=== PATIENT | female | born 1945 | race Caucasian/White ===

== ENCOUNTER → 2018-01-22 13:12 | Outpatient (CLI) | payer MEDICARE, OTHER, SELFPAY ==
[2018-01-22 13:29] LABS: Add Manual Diff / Slide Review NO; Basophils Percent Auto 0.8 % (0-2); Eosinophils Percent Auto 1.3 % (2-4); Hematocrit 42.5 % (36-46); Hemoglobin 14.4 g/dL (12.0-16.0); Lymphocytes Percent Auto 24.3 % (25-40); Mean Corpuscular HGB Conc 33.8 % (30-36); Mean Corpuscular Hemoglobin 30.3 PG (26-34); Mean Corpuscular Volume 89.9 fL (80-100); Monocytes Percent Auto 10.4 % (3-14); Neutrophils Absolute Auto 3600 /uL (3000-5900); Neutrophils Percent Auto 63.2 % (50-75); Platelet Count 383 X10^3/uL (150-400); Red Blood Cell Count 4.73 X10^6/uL (4.0-5.2); Red Cell Distribution Width 13.5 % (11.6-14.8); White Blood Cell Count 5.8 X10^3/uL (4.5-11.0)
[2018-01-22 13:38] LABS: Alanine Aminotransferase 26 IU/L (9-52); Albumin 4.5 g/dL (3.5-5.0); Albumin Globulin Ratio 1.5 (1.0-2.8); Alkaline Phosphatase 95 U/L (38-126); Aspartate Aminotransferase 28 IU/L (14-36); BUN Creatinine Ratio 24.3 (6-22); Bilirubin Total 0.6 mg/dL (0.2-1.3); Blood Urea Nitrogen 17 mg/dL (7-17); Calcium 9.5 mg/dL (8.4-10.2); Carbon Dioxide 26 mmol/L (22-32); Chloride 100 mmol/L (98-107); Estimated Glomerular Filt Rate > 60.0 mL/min (>60); Glucose 105 mg/dL (80-110); HEMOLYSIS < 15 (0-50); Potassium 4.3 mmol/L (3.4-5.1); Sodium 138 mmol/L (137-145); Total Protein 7.5 g/dL (6.3-8.2)
[2018-01-24 15:35] LABS: Cancer Antigen 27.29 34 U/mL (< 38)
== END ==
PROVIDERS: Family Provider Family Medicine; PCP Family Medicine; Visit Provider Nurse Practitioner Gerontology
DX: C50.919 Malignant neoplasm of unspecified site of unspecified female breast (principal); Z98.890 Other specified postprocedural states
CPT/HCPCS: 36415; 80053; 85025; 86300

== ENCOUNTER → 2018-05-03 08:00 | Outpatient (CLI) | payer MEDICARE, OTHER, SELFPAY ==
[2018-05-03 09:21] LABS: Hemoglobin A1C% w Est Avg Glu 5.2 % (4.0-6.0)
[2018-05-03 09:23] LABS: Cholesterol 310 mg/dL (140-199); HDL Cholesterol 107 mg/dL (40-60); LDL Cholesterol Calculated 191 mg/dL (<100); Triglycerides 61 mg/dL (35-150)
[2018-05-03 09:53] LABS: Free T3, Triiodothyronine Free 2.83 pg/mL (2.77-5.27); Free T4, Direct Thyroxine 0.85 ng/dL (0.78-2.19)
[2018-05-03 10:07] LABS: Thyroid Stimulating Hormone 1.97 uIU/mL (0.47-4.68)
[2018-05-04 17:55] LABS: Vitamin D 25 Hydroxy (D3) 36.7 ng/mL (30.0-100.0)
== END ==
PROVIDERS: PCP Family Medicine; Visit Provider Family Medicine
DX: K59.8 Other specified functional intestinal disorders (principal)
CPT/HCPCS: 36415; 80061; 82306; 83036; 84439; 84443; 84481

== ENCOUNTER → 2018-05-10 13:33 | Outpatient (CLI) | payer MEDICARE, OTHER, SELFPAY | PROVIDERS: PCP Family Medicine; Visit Provider Family Medicine | DX: M85.88 Other specified disorders of bone density and structure, other site (principal); Z78.0 Asymptomatic menopausal state; Z85.3 Personal history of malignant neoplasm of breast; Z82.62 Family history of osteoporosis | CPT/HCPCS: 77080 ==

== ENCOUNTER → 2018-07-11 10:21 | Outpatient (CLI) | payer MEDICARE, OTHER, SELFPAY | PROVIDERS: PCP Family Medicine; Visit Provider Psychiatry & Neurology Psychiatry | DX: Z79.899 Other long term (current) drug therapy (principal) | CPT/HCPCS: 36415; 80156 ==

== ENCOUNTER → 2018-07-13 13:19 | Outpatient (CLI) | payer MEDICARE, OTHER, SELFPAY ==
[2018-07-13 13:57] LABS: Add Manual Diff / Slide Review NO; Basophils Percent Auto 0.8 % (0-2); Hematocrit 41.5 % (36-46); Hemoglobin 13.9 g/dL (12.0-16.0); Lymphocytes Percent Auto 28.3 % (25-40); Mean Corpuscular HGB Conc 33.6 % (30-36); Mean Corpuscular Hemoglobin 30.1 PG (26-34); Mean Corpuscular Volume 89.7 fL (80-100); Monocytes Percent Auto 10.8 % (3-14); Neutrophils Absolute Auto 2800 /uL (3000-5900); Neutrophils Percent Auto 59.1 % (50-75); Platelet Count 365 X10^3/uL (150-400); Red Blood Cell Count 4.62 X10^6/uL (4.0-5.2); Red Cell Distribution Width 12.6 % (11.6-14.8); White Blood Cell Count 4.7 X10^3/uL (4.5-11.0)
[2018-07-13 14:04] LABS: Alanine Aminotransferase 23 IU/L (9-52); Albumin 4.5 g/dL (3.5-5.0); Albumin Globulin Ratio 1.6 (1.0-2.8); Alkaline Phosphatase 84 U/L (38-126); Aspartate Aminotransferase 25 IU/L (14-36); BUN Creatinine Ratio 22.5 (6-22); Bilirubin Total 0.5 mg/dL (0.2-1.3); Blood Urea Nitrogen 18 mg/dL (7-17); Calcium 9.6 mg/dL (8.4-10.2); Carbon Dioxide 28 mmol/L (22-32); Chloride 100 mmol/L (98-107); Estimated Glomerular Filt Rate > 60.0 mL/min (>60); Globulin 2.8 g/dL (1.7-4.1); Glucose 92 mg/dL (80-110); HEMOLYSIS < 15 (0-50); Potassium 4.3 mmol/L (3.4-5.1); Sodium 139 mmol/L (137-145); Total Protein 7.3 g/dL (6.3-8.2)
--- NOTE | 2018-07-13 14:22 | PC.NURSE ---
labs stable, provider visit 07/19
[2018-07-17 16:08] LABS: Cancer Antigen 27.29 34 U/mL (< 38)
== END ==
PROVIDERS: PCP Family Medicine; Visit Provider Nurse Practitioner Gerontology
DX: Z85.3 Personal history of malignant neoplasm of breast (principal); M85.88 Other specified disorders of bone density and structure, other site
CPT/HCPCS: 36415; 80053; 85025; 86300

== ENCOUNTER → 2018-10-05 13:51 | Outpatient (CLI) | payer MEDICARE, OTHER, SELFPAY ==
--- NOTE | 2018-10-05 | DI.MG.S_ITS ---
BILATERAL DIGITAL SCREENING MAMMOGRAM 3D/2D WITH CAD POST LUMPECTOMY: 10/05/2018 CLINICAL: Routine screening. Personal history of left breast cancer. Family history of breast cancer. Comparison is made to exams dated: 09/14/2017 mammogram, 08/19/2016 mammogram, and 08/17/2015 mammogram - [facility]. The tissue of both breasts is heterogeneously dense. This may lower the sensitivity of mammography. Current study was also evaluated with a Computer Aided Detection (CAD) system. There is possible architectural distortion in the right breast at 11 o'clock posterior depth. No other significant masses, calcifications, or other findings are seen in either breast. IMPRESSION: INCOMPLETE: NEEDS ADDITIONAL IMAGING EVALUATION The possible architectural distortion in the right breast is indeterminate. Additional views with possible ultrasound are recommended. This exam was interpreted at Station ID: [id number]. NOTE: For mammograms, a report in lay terms will be sent to the patient. Approximately 15% of breast malignancies will not be visualized mammographically. In the management of a palpable breast mass, a negative mammogram must not discourage biopsy of a clinically suspicious lesion. Electronically Signed By: Agnes Watkins M.D. lk/:10/05/2018 15:59:31 copy to: Alexandr Epstein copy to: Leobardo Avendano letter sent: Additional Imaging Needed ACR BI-RADS Category 0: Incomplete 3340F
== END ==
PROVIDERS: PCP Family Medicine; Visit Provider Obstetrics & Gynecology
DX: Z12.31 Encounter for screening mammogram for malignant neoplasm of breast (principal); Z85.3 Personal history of malignant neoplasm of breast; Z80.3 Family history of malignant neoplasm of breast
CPT/HCPCS: 77063; 77067

== ENCOUNTER → 2018-10-22 09:51 | Outpatient (CLI) | payer MEDICARE, OTHER, SELFPAY ==
--- NOTE | 2018-10-22 09:55 | DI.US.S_ITS ---
LIMITED ULTRASOUND OF RIGHT BREAST: 10/22/2018 CLINICAL: Patient returns today to evaluate possible architectural distortion in the right breast. Comparison is made to exams dated: 10/22/2018 mammogram, 10/05/2018 mammogram, 09/14/2017 mammogram, 08/19/2016 mammogram, and 08/19/2016 mammogram - [facility]. Real-time and Doppler ultrasound of the right breast 10-2 o'clock region were performed. Bell scale images of the real-time examination were reviewed. No underlying breast mass or abnormality is identified. There is no ultrasound correlate for the previously noted possible architechtural distortion in the upper right breast at middle to posterior depth near 11-1 o'clock position on comparison screening and diagnostic mammograms. IMPRESSION: INCOMPLETE: NEEDS ADDITIONAL IMAGING EVALUATION No ultrasound correlate for the previously noted possible architechtural distortion in the upper right breast at middle to posterior depth near 11-1 o'clock position on comparison screening and diagnostic mammograms. This area remains concerning and a breast MRI with contrast is recommended for further evaluation. This exam was interpreted at Station ID: [id number]. Electronically Signed By: Nithin Pittman M.D. ecl/:10/22/2018 14:30:19 Entry: - 10/22/2018 14:30:19 copy to: Alexandr Epstein copy to: Leobardo Avendano letter sent: Need MRI Ultrasound BI-RADS: 0 Indeterminate
--- NOTE | 2018-10-22 09:55 | DI.MG.S_ITS ---
UNILATERAL RIGHT DIGITAL DIAGNOSTIC MAMMOGRAM 3D/2D WITH ADDITIONAL VIEWS: 10/22/2018 CLINICAL: Additional evaluation requested from prior study. Family history of breast cancer. Personal history of breast cancer. Comparison is made to exams dated: 10/05/2018 mammogram, 09/14/2017 mammogram, and 08/19/2016 mammogram - [facility]. The tissue of right breast is heterogeneously dense. This may lower the sensitivity of mammography. Previously identified possible architectural distortion in the right breast described as being at 11 o'clock posterior depth on comparison screening mammograms of 10/05/2018 persists with additional views. The area of posterior distortion localizes closer to middle depth on additional views, and is in the upper breast near 11-1 o'clock positions. IMPRESSION: INCOMPLETE: NEEDS ADDITIONAL IMAGING EVALUATION Previously identified possible architectural distortion in the upper right breast persists with additional views. A targeted ultrasound is recommended for further evaluation, and will be performed immediately following this exam. This exam was interpreted at Station ID: [id number]. NOTE: For mammograms, a report in lay terms will be sent to the patient. Approximately 15% of breast malignancies will not be visualized mammographically. In the management of a palpable breast mass, a negative mammogram must not discourage biopsy of a clinically suspicious lesion. Electronically Signed By: Nithin Pittman M.D. ecl/:10/22/2018 10:59:52 copy to: Alexandr Epstein copy to: Leobardo Avendano letter sent: Additional Imaging Needed ACR BI-RADS Category 0: Incomplete 3340F
== END ==
PROVIDERS: PCP Family Medicine; Visit Provider Obstetrics & Gynecology
DX: R92.8 Other abnormal and inconclusive findings on diagnostic imaging of breast (principal); Z85.3 Personal history of malignant neoplasm of breast; Z80.3 Family history of malignant neoplasm of breast
CPT/HCPCS: 76642; 77065; G0279

== ENCOUNTER → 2018-10-31 07:37 | Outpatient (CLI) | payer MEDICARE, OTHER, SELFPAY ==
--- NOTE | 2018-10-31 07:41 | DI.MRI.S_ITS ---
BREAST MRI OF BOTH BREASTS- POST LUMPECTOMY WITH CAD: 10/31/2018 CLINICAL: Abnormal right breast mammogram. Comparison is made to exams dated: 10/22/2018 ultrasound, 10/22/2018 mammogram, and 10/05/2018 mammogram - [facility]. Interpretation of this MRI was correlated with available mammograms and ultrasounds. Informed consent was obtained from the patient. Gadolinium contrast was injected. Axial T1, T2, sagittal T1, and pre and post contrast T1 images were obtained with a dedicated breast coil. Post processing was performed including computer aided calculations of any tumor volumes and dimensions. Bilateral background breast enhancement is mild. Right breast: No discrete mass or suspicious enhancement to suggest malignancy in the right breast. Specifically, no abnormality identified to correlate with the area of possible architectural distortion on prior mammogram. Left breast: No discrete mass or suspicious enhancement to suggest malignancy in the left breast. Miscellaneous: No evidence of intramammary or axillary lymphadenopathy by size criteria. IMPRESSION: PROBABLY BENIGN 1. No MRI evidence of malignancy in the right or left breast. Specifically, no abnormality identified in the right breast to correlate with the possible architectural distortion on prior mammogram. Recommend followup mammogram in 6 months to demonstrate stability. A follow-up mammogram in 6 months is recommended to demonstrate stability. This exam was interpreted at Station ID: [id number]. Electronically Signed By: Samson Reyes M.D. ddmando/:11/01/2018 08:15:25 Entry: - 11/01/2018 08:15:25 copy to: Alexandr Epstein copy to: Leobardo Avendano ACR BI-RADS Category 3: Probably benign 3343F
== END ==
PROVIDERS: PCP Family Medicine; Visit Provider Obstetrics & Gynecology
DX: R92.8 Other abnormal and inconclusive findings on diagnostic imaging of breast (principal); Z85.3 Personal history of malignant neoplasm of breast
CPT/HCPCS: 77049; A9579

== ENCOUNTER → 2019-01-31 10:04 | Outpatient (CLI) | payer MEDICARE, OTHER, SELFPAY ==
--- NOTE | 2019-01-31 10:06 | DI.US.S_ITS ---
LIMITED ULTRASOUND OF LEFT BREAST AND AXILLA: 01/31/2019 CLINICAL: Palpable left breast lump. Comparison is made to exams dated: 10/31/2018 breast MRI, 10/05/2018 mammogram, 09/14/2017 mammogram, 08/19/2016 mammogram, 08/19/2016 mammogram, and 02/17/2016 mammogram - [facility]. Color flow and real-time ultrasound of the left breast 12 o'clock, and axilla regions were performed on the areas of interest. There is 3 cm x 1 cm x 1.9 cm oval solid mass with an indistinct margin in the left breast at 12 o'clock anterior depth. This oval solid mass is hypoechoic and heterogeneously echogenic with posterior acoustic shadowing. This correlates as palpated. Color flow imaging demonstrates that there is vascularity present. No abnormalities were seen sonographically in the left axilla. IMPRESSION: SUSPICIOUS OF MALIGNANCY The 3 cm x 1 cm x 1.9 cm oval solid mass in the left breast is at a moderate suspicion for malignancy. An ultrasound guided biopsy is recommended. The findings were discussed with the patient at the conclusion of the study by Dr. Clifton. This exam was interpreted at Station ID: [id number]. Electronically Signed By: Samson glaser/:01/31/2019 18:01:22 copy to: Alexandr Epstein copy to: Leobardo Avendano letter sent: Biopsy Required Ultrasound BI-RADS: 4c Suspicious abnormality - moderate concern but not classic for malignancy
== END ==
PROVIDERS: Family Provider Family Medicine; PCP Family Medicine
DX: R92.8 Other abnormal and inconclusive findings on diagnostic imaging of breast (principal); N63.20 Unspecified lump in the left breast, unspecified quadrant
CPT/HCPCS: 76642

== ENCOUNTER → 2019-02-21 13:03 | Outpatient (CLI) | payer MEDICARE, OTHER, SELFPAY ==
--- NOTE | 2019-02-21 | DI.US.S_ITS ---
ULTRASOUND GUIDED BIOPSY LEFT BREAST USING VACUUM DEVICE WITH MARKING DEVICE INSERTED AND POST DIGITAL MAMMOGRAPHIC IMAGING AND RADIOGRAPHIC SPECIMEN IMAGIN02/21/2019 CLINICAL: Left breast mass. PATIENT CONSENT: Risks (minor bleeding, infection, vasovagal reaction and repeat procedure), benefits and alternatives were explained to the patient and written informed consent was obtained. Correlation is made to exams dated: 01/31/2019 ultrasound, 01/31/2019 ultrasound, 10/31/2018 breast MRI, 10/05/2018 mammogram, 09/14/2017 mammogram, and 08/19/2016 mammogram - [facility]. An ultrasound guided biopsy using real-time ultrasound was performed for the palpable 2.7 cm wider than tall microlobulated irregular shaped solid mass located in the left breast at 12 o'clock anterior depth 2 cm from the nipple. This was described on the previous ultrasound report. The skin was prepped in the usual manner. Local anesthetic was administered to the access site. A skin renate was made in the breast. The abnormality was approached from the lateral aspect. A 13 gauge biopsy needle was placed adjacent to the abnormality under ultrasound guidance. Once the needle was documented to be in the correct location, four cores were obtained using a vacuum assisted device. More that usual post biospy bleeding was demonstrated and pressure was applied for approxamently 10 min. A clip was inserted into the biopsy cavity. A skin closure strip and a sterile dressing were applied to the access site. Post procedure digital mammographic imaging demonstrates the coil biopsy clip at the targeted area. The specimens were sent to the laboratory for pathological analysis. IMPRESSION: ULTRASOUND GUIDED BIOPSY BENIGN Ultrasound guided biopsy of the 2.7 cm wider than tall solid mass in the left breast at 12 o'clock anterior depth 2 cm from the nipple was successful. Complication with this procedure was a small hematoma treated with local pressure until hemostasis was achieved. The imaged cores include the mass. Final pathology results per pathologist Dr. Clayton Soto identified fat necrosis with benign calcifications, background dense fibrous breast tissue, negative for atypical hyperplasia, in situ, or invasive carcinoma. Results are concordant with imaging. A follow-up targeted ultrasound with diagnostic mammogram is recommended in 6 months; mammography of the right breast will also be due at that time for evalution of stability of right breast findings described on comparison diagnostic mammogram of 10/22/2018 and breast MRI of 10/31/18. These results will be communicated to the patient's referring provider. This exam was interpreted at Station ID: [id number]. Nish Pittman M.D. [facility],ecl/:03/01/2019 05:51:15 copy to: Alexandr Epstein copy to: Leobardo Avendano
--- NOTE | 2019-02-21 | PATH_ITS ---
[facility] Accession Number: [id number] . 01 Material submitted: . breast - LEFT BREAST MASS 12:00 2 CM FN . 02 Diagnosis: Left Breast Mass at 12 o'clock, 2 cm from Nipple, Needle Core Biopsy: Fat necrosis with benign calcifications. Background dense fibrous breast tissue. Negative for atypical hyperplasia, in situ or invasive carcinoma. MRV/02/26/2019 . 02 Comment: As part of routine quality rep, Dr. Rodríguez has reviewed this case and agrees with the above interpretation. . 02 Electronically signed: . Clayton Soto MD, PhD, Pathologist NPI- [id number] . 01 Gross description: . Received in formalin, labeled with the patient's name and ultrasound biopsy left breast mass 12 o'clock, are five arnold-brown soft tissue cores ranging from 0.9 to 1.9 cm in length and averaging 0.2 cm in diameter. The specimen is entirely submitted in two cassettes. The specimen is collected on 02/21/2019 at 1403 for an approximate fixation time of 67.5 hours. (FEMI:[id number]) /MRV . 02 Microscopic: . An DUSTIN immunostain highlights benign ductal epithelium. There is no evidence of an infiltrative epithelial process. A control stain shows appropriate reactivity. . * This test was developed and its performance characteristics determined by [facility]. It has not been cleared or approved by the U.S. Food and Drug Administration. The FDA has determined that such clearance or approval is not necessary. This test is used for clinical purposes. It should not be regarded as investigational or for research. . 02 Pathologist provided ICD-10: N63.20 . 02 CPT . 982592, [id number] Performed at: 01 [facility] [address] [place] [address], [place], [place] [id number] MD Samson Dawson MD Phone: [phone] Performed at: 02 [facility] [address] [place], [place] [id number] MD Dimple Rodríguez MD Phone: [phone]
--- NOTE | 2019-02-21 13:16 | DI.MG.S_ITS ---
UNILATERAL LEFT DIGITAL DIAGNOSTIC MAMMOGRAM: 02/21/2019 CLINICAL: Post left breast ultrasound biopsy clip placement imaging. Comparison is made to exams dated: 10/31/2018 breast MRI, 10/22/2018 mammogram, and 10/05/2018 mammogram - [facility]. The tissue of left breast is heterogeneously dense. This may lower the sensitivity of mammography. Newly placed marker clip in the appropriate position with adjacent large rodlike calcifications in the left breast anterior depth superior region seen on the mediolateral oblique view only 1.4 cm from the nipple. This marker clip placement is at the biopsy site. This correlates with ultrasound findings and the biopsy. IMPRESSION: POST PROCEDURE MAMMOGRAM FOR MARKER PLACEMENT There was a successful marker clip placement in the left breast anterior depth at 12:00. This exam was interpreted at Station ID: [id number]. NOTE: For mammograms, a report in lay terms will be sent to the patient. Approximately 15% of breast malignancies will not be visualized mammographically. In the management of a palpable breast mass, a negative mammogram must not discourage biopsy of a clinically suspicious lesion. Electronically Signed By: Nish Gonzales M.D. slc/:02/21/2019 15:04:39 copy to: Alexandr Epstein copy to: Leobardo MURILLO BI-RADS Category Post-procedure mammogram for marker placement
== END ==
PROVIDERS: Family Provider Family Medicine; PCP Family Medicine
DX: N64.1 Fat necrosis of breast (principal); L76.02 Intraoperative hemorrhage and hematoma of skin and subcutaneous tissue complicating other procedure
CPT/HCPCS: 19083; 77065; 88305; 88342

== ENCOUNTER → 2019-04-23 12:31 | Outpatient (CLI) | payer MEDICARE, OTHER, SELFPAY ==
--- NOTE | 2019-04-23 12:33 | DI.MG.S_ITS ---
UNILATERAL RIGHT DIGITAL DIAGNOSTIC MAMMOGRAM 3D/2D SHORT-TERM FOLLOW-UP: 04/23/2019 CLINICAL: Patient returns for a 6 month follow up of the right breast. Comparison is made to exams dated: 02/21/2019 mammogram, 10/31/2018 breast MRI, and 10/05/2018 mammogram - [facility]. The tissue of right breast is heterogeneously dense. This may lower the sensitivity of mammography. On the current study of the right breast, the upper outer right breast architectural distortion is no longer discretely apparent, and has certainly not progressed. There are no new masses or suspicious calcifications. No significant masses, calcifications, or other findings are seen in the breast. IMPRESSION: NEGATIVE No persistent abnormality on the current study. There had been no previous sonographic correlate, and no suspicious finding in this breast on recently performed breast MRI. This area is therefore benign. Return to screening for the right breast is recommended. Continued follow up for the left breast as previously detailed is recommended. Findings and recommendations were conveyed to the patient at time of exam. This exam was interpreted at Station ID: [id number]. NOTE: For mammograms, a report in lay terms will be sent to the patient. Approximately 15% of breast malignancies will not be visualized mammographically. In the management of a palpable breast mass, a negative mammogram must not discourage biopsy of a clinically suspicious lesion. Electronically Signed By: Hayley houser/:04/23/2019 13:55:41 copy to: Alexandr Epstein letter sent: Normal Exam ACR BI-RADS Category 1: Negative 3341F
== END ==
PROVIDERS: Family Provider Family Medicine; PCP Family Medicine
DX: R92.8 Other abnormal and inconclusive findings on diagnostic imaging of breast (principal); C50.919 Malignant neoplasm of unspecified site of unspecified female breast
CPT/HCPCS: 77065; G0279

== ENCOUNTER → 2019-10-24 13:57 | Outpatient (CLI) | payer MEDICARE, OTHER, SELFPAY ==
--- NOTE | 2019-10-24 | DI.US.S_ITS ---
LIMITED ULTRASOUND OF RIGHT BREAST: 10/24/2019 CLINICAL: Possible right breast mass. Comparison is made to exams dated: 04/23/2019 mammogram, 02/21/2019 mammogram, 01/31/2019 ultrasound, and 01/31/2019 ultrasound [facility]. Real-time ultrasound of the right breast 10-11 o'clock region was performed. Bell scale images of the real-time examination were reviewed. No significant abnormalities were seen sonographically in the right breast. Specifically, no finding to correspond to the patient's mammographic abnormality at 11:00 middle depth. IMPRESSION: PROBABLY BENIGN No sonographic correlate to the mammographic asymmetry. A follow-up right mammogram in 6 months is recommended to demonstrate stability. Findings and recommendations were conveyed to the patient at time of exam. This exam was interpreted at Station ID: [id number]. Electronically Signed By: Hayley houser/:10/25/2019 19:50:08 copy to: Alexandr Epstein letter sent: Followup Recommended Ultrasound BI-RADS: 3 Probably benign
--- NOTE | 2019-10-24 | DI.US.S_ITS ---
LIMITED ULTRASOUND OF LEFT BREAST: 10/24/2019 CLINICAL: Follow up on biopsy site. Comparison is made to exams dated: 04/23/2019 mammogram, 02/21/2019 mammogram, 02/21/2019 ultrasound biopsy, 01/31/2019 ultrasound, and 01/31/2019 ultrasound - [facility]. Real-time ultrasound of the left breast 12 o'clock, and retroareolar regions was performed. Bell scale images of the real-time examination were reviewed. There is a stable benign irregular post-surgical tissue changes including coarse related calcifications in the left breast central to the nipple in the retroareolar region. This correlates with mammography findings. IMPRESSION: BENIGN There is no sonographic evidence of malignancy. The irregular post-surgical scar in the left breast is stable and appears benign. Return to annual mammogram screening schedule is recommended. Findings and recommendations were conveyed to the patient at time of exam. This exam was interpreted at Station ID: [id number]. Electronically Signed By: Hayley houser/:10/25/2019 19:55:54 copy to: Alexandr Epstein letter sent: Normal Exam Ultrasound BI-RADS: 2 Benign
--- NOTE | 2019-10-24 13:58 | DI.MG.S_ITS ---
BILATERAL DIGITAL DIAGNOSTIC MAMMOGRAM 3D/2D SHORT-TERM FOLLOW-UP POST LUMPECTOMY: 10/24/2019 CLINICAL: Patient returns for a 6 month follow up of the left breast, due for bilateral imaging. Comparison is made to exams dated: 04/23/2019 mammogram, 02/21/2019 mammogram, 10/31/2018 breast MRI, 10/22/2018 mammogram, 09/14/2017 mammogram, and 10/05/2018 mammogram - [facility]. The tissue of both breasts is heterogeneously dense. This may lower the sensitivity of mammography. There is a focal asymmetry in the right breast at 11 o'clock middle depth. Finding is seen only on tomography. This is more prominent. There is possible architectural distortion associated with the focal asymmetry. There is a stable fat necrosis in the left breast central to the nipple anterior depth. There is a biopsy clip associated with the fat necrosis. No other significant masses or calcifications are seen in either breast. IMPRESSION: INCOMPLETE: NEEDS ADDITIONAL IMAGING EVALUATION The focal asymmetry in the right breast at 11 o'clock middle depth is indeterminate. An ultrasound is recommended. The fat necrosis in the left breast central to the nipple anterior depth appears stable. An ultrasound is recommended for confirmation. Bilateral ultrasound was performed following this exam. This exam was interpreted at Station ID: [id number]. NOTE: For mammograms, a report in lay terms will be sent to the patient. Approximately 15% of breast malignancies will not be visualized mammographically. In the management of a palpable breast mass, a negative mammogram must not discourage biopsy of a clinically suspicious lesion. Electronically Signed By: Hayley houser/:10/24/2019 15:27:03 copy to: Alexandr Epstein ACR BI-RADS Category 0: Incomplete 3340F
== END ==
PROVIDERS: Family Provider Family Medicine; PCP Family Medicine; Referring Provider Family Medicine
DX: R92.8 Other abnormal and inconclusive findings on diagnostic imaging of breast (principal); N64.89 Other specified disorders of breast; N64.1 Fat necrosis of breast; Z85.3 Personal history of malignant neoplasm of breast
CPT/HCPCS: 76642; 77066; G0279

== ENCOUNTER → 2020-01-13 11:11 | Outpatient (CLI) | payer MEDICARE, OTHER, SELFPAY ==
[2020-01-13 12:25] LABS: Add Manual Diff / Slide Review NO; Basophils Absolute Auto 0 /uL (0-100); Basophils Percent Auto 0.8 % (0-2); Eosinophils Absolute Auto 0 /uL (0-450); Eosinophils Percent Auto 0.8 % (2-4); Hematocrit 40.9 % (36-46); Hemoglobin 13.9 g/dL (12.0-16.0); Lymphocytes Absolute Auto 1200 /uL (1100-4500); Lymphocytes Percent Auto 22.3 % (25-40); Mean Corpuscular HGB Conc 33.9 % (30-36); Mean Corpuscular Hemoglobin 30.6 PG (26-34); Mean Corpuscular Volume 90.2 fL (80-100); Monocytes Absolute Auto 500 /uL (0-900); Monocytes Percent Auto 9.5 % (3-14); Neutrophils Absolute Auto 3400 /uL (1500-7000); Neutrophils Percent Auto 66.6 % (50-75); Platelet Count 352 X10^3/uL (150-400); Red Blood Cell Count 4.54 X10^6/uL (4.0-5.2); Red Cell Distribution Width 13.8 % (11.6-14.8); White Blood Cell Count 5.2 X10^3/uL (4.5-11.0)
[2020-01-13 12:35] LABS: Alanine Aminotransferase 18 IU/L (<35); Albumin 4.5 g/dL (3.5-5.0); Albumin Globulin Ratio 1.5 (1.0-2.8); Alkaline Phosphatase 100 U/L (38-126); Aspartate Aminotransferase 31 IU/L (14-36); BUN Creatinine Ratio 16.2 (6-22); Bilirubin Total 0.5 mg/dL (0.2-1.3); Blood Urea Nitrogen 12 mg/dL (7-17); Calcium 9.7 mg/dL (8.4-10.2); Carbon Dioxide 28 mmol/L (22-32); Chloride 103 mmol/L (98-107); Estimated Glomerular Filt Rate > 60.0 mL/min (>60); Globulin 3.1 g/dL (1.7-4.1); Glucose 101 mg/dL (80-110); HEMOLYSIS < 15 (0-50); Potassium 4.3 mmol/L (3.4-5.1); Sodium 139 mmol/L (137-145); Total Protein 7.6 g/dL (6.3-8.2)
[2020-01-14 04:36] LABS: Cancer Antigen 27.29 34.2 U/mL (0.0-38.6)
== END ==
PROVIDERS: Family Provider Family Medicine; PCP Family Medicine; Referring Provider Internal Medicine Hematology & Oncology; Visit Provider Internal Medicine Hematology & Oncology
DX: C50.919 Malignant neoplasm of unspecified site of unspecified female breast (principal)
CPT/HCPCS: 36415; 80053; 85025; 86300

== ENCOUNTER → 2020-05-06 13:28 | Outpatient (CLI) | payer MEDICARE, OTHER, SELFPAY ==
--- NOTE | 2020-05-06 | DI.MG.S_ITS ---
UNILATERAL RIGHT DIGITAL DIAGNOSTIC MAMMOGRAM 3D/2D SHORT-TERM FOLLOW-UP: 05/06/2020 CLINICAL: Short term follow up. Comparison is made to exams dated: 10/24/2019 mammogram, 04/23/2019 mammogram, 10/22/2018 mammogram, 10/05/2018 mammogram, and 09/14/2017 mammogram - [facility]. The tissue of right breast is heterogeneously dense. This may lower the sensitivity of mammography. The previously described focal asymmetry in the right breast at 11 o'clock middle depth is no longer seen. The associated architectural distortion appears less conspicuous and only visualized on the lateral view by tomosynthesis. There was no correlate seen on the prior ultrasound. No other significant masses or calcifications are seen in the breast. IMPRESSION: PROBABLY BENIGN Previously described right breast asymmetry is not apprerciated on today's study and possible architectural distortion is only seen tomographically on the lateral view. A follow-up right mammogram with possible ultrasound in 6 months is recommended to demonstrate stability. The patient will also be due for screening left mammogram at that time. Findings and recommendations were conveyed to the patient during today's visit. This exam was interpreted at Station ID: [id number]. NOTE: For mammograms, a report in lay terms will be sent to the patient. Approximately 15% of breast malignancies will not be visualized mammographically. In the management of a palpable breast mass, a negative mammogram must not discourage biopsy of a clinically suspicious lesion. Electronically Signed By: Miles De Oliveira M.D. aty/:05/06/2020 14:49:12 copy to: Alexandr Epstein letter sent: Followup Recommended ACR BI-RADS Category 3: Probably benign 3343F
== END ==
PROVIDERS: Family Provider Family Medicine; PCP Family Medicine; Referring Provider Internal Medicine Hematology & Oncology; Visit Provider Internal Medicine Hematology & Oncology
DX: R92.8 Other abnormal and inconclusive findings on diagnostic imaging of breast (principal); N64.89 Other specified disorders of breast; Z85.3 Personal history of malignant neoplasm of breast
CPT/HCPCS: 77065; G0279

== ENCOUNTER → 2020-05-11 09:47 | Outpatient (CLI) | payer MEDICARE, OTHER, SELFPAY | PROVIDERS: Family Provider Family Medicine; PCP Family Medicine; Referring Provider Family Medicine; Visit Provider Internal Medicine Hematology & Oncology | DX: M81.0 Age-related osteoporosis without current pathological fracture (principal); Z78.0 Asymptomatic menopausal state; C50.919 Malignant neoplasm of unspecified site of unspecified female breast; Z82.62 Family history of osteoporosis | CPT/HCPCS: 77080; 77081 ==

== ENCOUNTER → 2020-11-04 08:33 | Outpatient (CLI) | payer MEDICARE, OTHER, SELFPAY ==
--- NOTE | 2020-11-04 08:36 | DI.MG.S_ITS ---
BILATERAL DIGITAL DIAGNOSTIC MAMMOGRAM 3D/2D SHORT-TERM FOLLOW-UP POST LUMPECTOMY: 11/04/2020 CLINICAL: Short term follow up of the right breast, due for bilateral imaging. Comparison is made to exams dated: 05/06/2020 mammogram, 10/24/2019 mammogram, and 10/31/2018 breast MRI - [facility]. The tissue of both breasts is heterogeneously dense. This may lower the sensitivity of mammography. There is a focal asymmetry in the right breast at 11 o'clock middle depth. Finding is seen only on tomography. This is more prominent. There is architectural distortion associated with the focal asymmetry. There is a stable fat necrosis in the left breast central to the nipple anterior depth. There is a biopsy clip associated with the fat necrosis. No other significant masses or calcifications are seen in either breast. IMPRESSION: BENIGN Focal asymmetry in the right breast at 11 o'clock middle depth is unchanged. Stable fat necrosis in the left breast central to the nipple anterior depth A diagnostic ultrasound has been requested and and will be performed immediately following this exam. This exam was interpreted at Station ID: [id number]. NOTE: For mammograms, a report in lay terms will be sent to the patient. Approximately 15% of breast malignancies will not be visualized mammographically. In the management of a palpable breast mass, a negative mammogram must not discourage biopsy of a clinically suspicious lesion. Electronically Signed By: Familia Camilo M.D. jr/:11/04/2020 13:36:38 copy to: Alexandr MURILLO BI-RADS Category 2: Benign Finding(s) 3342F
--- NOTE | 2020-11-04 08:36 | DI.US.S_ITS ---
ULTRASOUND OF RIGHT BREAST: 11/04/2020 CLINICAL: Patient returns today to evaluate a focal asymmetry in the right breast. Comparison is made to exams dated: 05/06/2020 mammogram, 10/24/2019 ultrasound, 10/24/2019 ultrasound, 10/24/2019 mammogram, and 04/23/2019 mammogram - [facility]. Color flow and real-time ultrasound of the right breast were performed. Bell scale images of the real-time examination were reviewed. IMPRESSION: NEGATIVE There is no sonographic evidence of malignancy. A 1 year screening mammogram is recommended. This exam was interpreted at Station ID: [id number]. Electronically Signed By: Familia Camilo M.D., jr/michael:11/04/2020 13:37:06 copy to: Alexandr Epstein letter sent: Normal Exam Ultrasound BI-RADS: 1 Negative
== END ==
PROVIDERS: Family Provider Family Medicine; PCP Registered Nurse Diabetes Educator; Referring Provider Internal Medicine Hematology & Oncology; Visit Provider Internal Medicine Hematology & Oncology
DX: R92.8 Other abnormal and inconclusive findings on diagnostic imaging of breast (principal); C50.919 Malignant neoplasm of unspecified site of unspecified female breast; N64.89 Other specified disorders of breast
CPT/HCPCS: 76642; 77066; G0279

== ENCOUNTER → 2020-11-16 09:38 | Outpatient (CLI) | payer MEDICARE, OTHER, SELFPAY ==
[2020-11-16 11:02] LABS: COVID19 -Nasal RAPID Negative (Negative)
== END ==
PROVIDERS: Family Provider Family Medicine; PCP Registered Nurse Diabetes Educator; Visit Provider Physician Assistant
DX: Z01.812 Encounter for preprocedural laboratory examination (principal); Z20.822 Contact with and (suspected) exposure to COVID-19
CPT/HCPCS: 87635; C9803

== ENCOUNTER 2020-11-18 07:54 | Day surgery (SDC) | payer MEDICARE, OTHER, SELFPAY ==
[2020-11-18] VITALS (8 sets, daily range): BP systolic 87–145; BP diastolic 37–77; PULSE 57–90; RESP 12–16; TEMP 36.3–37.1; O2SAT 96–99; BMI 21.6
--- NOTE | 2020-11-18 | PATH_ITS ---
[facility] Accession Number: [id number] . 01 Material submitted: . PART A: small bowel - SMALL BOWEL PART B: gastrointestinal site - GASTRIC POLYP PART C: colon - RANDOM COLON BIOPSIES . 01 Clinical history: . [facility] A: R/O SPRUE . 02 Diagnosis: A. Small Bowel, Biopsy: Duodenal mucosa with no diagnostic abnormality. Negative for active inflammation, features of sprue, dysplasia, or malignancy. . B. Stomach, Polyp, Biopsy: Fundic gland polyp. No evidence of Helicobacter on H/E stain. Negative for intestinal metaplasia. Negative for dysplasia and malignancy. . C. Random Colon, Biopsies: Colonic mucosa with no diagnostic abnormality. Negative for active, chronic, and microscopic colitis. Negative for dysplasia and malignancy. [facility] 11/23/2020 1512 Local . 02 Electronically signed: . Dimple Rodríguez MD, Pathologist NPI- [id number] . 01 Gross description: . Part A: SMALL BOWEL: Received in formalin are 2 fragment(s) of arnold, soft tissue measuring 0.2 x 0.2 x 0.2 cm to 0.3 x 0.2 x 0.2 cm submitted entirely in 1 cassette(s) Part B: GASTRIC POLYP: Received in formalin are 2 fragment(s) of arnold, soft tissue measuring 0.1 x 0.1 x 0.1 cm to 0.3 x 0.3 x 0.2 cm submitted entirely in 1 cassette(s) Part C: RANDOM COLON BIOPSIES: Received in formalin are multiple fragment(s) of arnold, soft tissue measuring 0.1 x 0.1 x 0.1 cm to 0.4 x 0.3 x 0.2 cm submitted entirely in 1 cassette(s) /KARAN 11/19/2020 1835 [facility] . 02 Pathologist provided ICD-10: R13.14, R19.7 . 02 CPT . 976737, 072053, 395532 Performed at: 01 [facility] [address] [place] [address], [place], [place] [id number] MD Samson Dawson MD Phone: [phone] Performed at: 02 [facility] [place] [address] [place], [place] [id number] MD Dimple Rodríguez MD Phone: [phone]
--- NOTE | 2020-11-18 08:20 | PM.OP.ENDO ---
Operative Date/Time/Diagnoses Date of procedure: 11/18/20 Pre-op diagnosis: See indication and findings Procedure & Clinicians Study performed: EGD and colonoscopy Same procedure as scheduled: Yes Indications: Esophageal dysphagia and chronic diarrhea Surgeon: Neda Geiger Procedure Notes Procedure in detail: After informed consent was obtained the patient was placed in left lateral decubitus position. Video upper scope was placed into the oropharynx and with the patient's help swallowed into the esophagus. The esophagus stomach and duodenum were carefully examined. On withdrawal, retroflexed view the GE junction was performed. The scope was removed. The patient tolerated procedure well. The patient was then turned to the colonoscope substituted. This was passed from the rectum to the cecum where the IC valve was identified and intubated.. Preparation was good. On slow withdrawal mucosa was carefully examined. The scope was removed. The patient tolerated procedure well. Blood loss none Complications none Sedation Total sedation time 27 minutes Versed 5 mg fentanyl 100 micro g IV titration Findings EGD 1. Somewhat difficult to intubate with somewhat tight cricopharyngeus. No clear abnormality 2. Otherwise normal esophagus with completely normal gastroesophageal junction 3. Few scattered small polyps in midbody biopsies taken of 2 largest ones, basically removing them. 4. Normal duodenal bulb and sweep. Biopsies taken to rule out celiac Colonoscopy 1. Scattered left-sided diverticula 2. Otherwise completely normal colonic mucosa randomly biopsied to rule out microscopic colitis 3. Normal terminal ileum Further recommendations will follow the results of the biopsies.
--- NOTE | 2020-11-18 08:21 | PM.HP.1 ---
History of Present Illness History of Present Illness Date Patient Seen: 11/18/20 Chief complaint: SDC Narrative: Esophageal dysphagia and chronic diarrhea Patient History Medical History Allergies Chronic diarrhea Hearing loss (~2016) Insomnia Osteopenia PMB (postmenopausal bleeding) Surgical History Anesthesia History of third molar tooth extraction (~1964) Status post breast lumpectomy (~2014) Status post colonoscopy (~2012) Status post dilation and curettage (~2012) Family & Social History Family History Father History of heart disease Hyperlipidemia Hypertension Mother History of heart disease Hyperlipidemia Hypertension Brother History of heart disease Tobacco & Substance use: Smoking Status Never smoker Meds Home Medications and Allergies Home Medications Medication Instructions Recorded Confirmed Type cholecalciferol (vitamin D3) 1,000 unit PO DAILY 01/26/18 11/18/20 History [Vitamin D3] Allergies Allergy/AdvReac Type Severity Reaction Status Date / Time No Known Drug Allergies Allergy Verified 11/18/20 08:07 Exam Narrative Exam Narrative: Oropharynx free of lesions Chest clear to auscultation percussion Cardiac exam reveals no S3 or murmur Assessment & Plan Assessment & Plan narrative: Esophageal dysphagia and chronic diarrhea need for EGD and colonoscopy. Risks, benefits, alternatives have been explained.
[2020-11-18] MEDS: SODIUM CHLORIDE 0.9% 1,000 ML 100 ML IV (08:27)
[2020-11-18] MEDS: MIDAZOLAM 5 MG/5 ML VIAL IV (09:38)
[2020-11-18] MEDS: fentaNYL 250 MCG/5 ML INJ IV (09:38)
--- NOTE | 2020-11-18 10:54 | SUR.PHASEII ---
1030 Patient denies feeling lightheaded or dizzy. BP stable post-op, elevated on admit. Denies discomfort, tolerating ice chips well, decline PO fluids. Anxious to eat. Pleasant, no questions/concerns.
== END 2020-11-18 10:40 | disposition home or self-care (01) ==
PROVIDERS: Family Provider Family Medicine; PCP Registered Nurse Diabetes Educator; Referring Provider Internal Medicine Gastroenterology; Visit Provider Internal Medicine Gastroenterology
PROC: 0DJ08ZZ Inspection of Upper Intestinal Tract, Via Natural or Artificial Opening Endoscopic (ICD-10-PCS; CPT 43235; principal; 2020-11-18 09:00)
PROC: 0DJD8ZZ Inspection of Lower Intestinal Tract, Via Natural or Artificial Opening Endoscopic (ICD-10-PCS; CPT 45378; 2020-11-18 09:00)
DX: K52.9 Noninfective gastroenteritis and colitis, unspecified (principal); R13.14 Dysphagia, pharyngoesophageal phase; K57.30 Diverticulosis of large intestine without perforation or abscess without bleeding; K31.7 Polyp of stomach and duodenum
CPT/HCPCS: 45380; 43239; J2250; J3010

== ENCOUNTER → 2020-11-20 07:37 | Outpatient (CLI) | payer MEDICARE, OTHER, SELFPAY ==
[2020-11-20] MEDS: COVID-19 VACC, Ad26(JANSSEN)/PF 0.5 ML IM (07:43)
== END ==
PROVIDERS: Family Provider Family Medicine; PCP Registered Nurse Diabetes Educator; Visit Provider Internal Medicine
DX: Z23 Encounter for immunization (principal)
CPT/HCPCS: 0031A; 91303

== ENCOUNTER → 2021-11-05 10:46 | Outpatient (CLI) | payer MEDICARE, OTHER, SELFPAY ==
--- NOTE | 2021-11-05 | DI.MG.S_ITS ---
BILATERAL DIGITAL SCREENING MAMMOGRAM 3D/2D WITH CAD: 11/05/2021 CLINICAL: Routine screening. Personal history of left breast cancer. Family history of breast cancer. Comparison is made to exams dated: 11/04/2020 mammogram, 05/06/2020 mammogram, 10/24/2019 mammogram, and 10/05/2018 mammogram - [facility]. The tissue of both breasts is heterogeneously dense. This may lower the sensitivity of mammography. Current study was also evaluated with a Computer Aided Detection (CAD) system. There is a benign area of fat necrosis in the left breast. There also are benign post operative findings in the left breast. No significant masses, calcifications, or other findings are seen in either breast. There has been no significant interval change. IMPRESSION: BENIGN There is no mammographic evidence of malignancy. A 1 year screening mammogram is recommended. This exam was interpreted at Station ID: [id number]. NOTE: For mammograms, a report in lay terms will be sent to the patient. Approximately 15% of breast malignancies will not be visualized mammographically. In the management of a palpable breast mass, a negative mammogram must not discourage biopsy of a clinically suspicious lesion. Electronically Signed By: Hayley houser/michael:11/05/2021 11:34:45 copy to: Alexandr Epstein letter sent: Normal Exam ACR BI-RADS Category 2: Benign Finding(s) 3342F
== END ==
PROVIDERS: Family Provider Family Medicine; PCP Registered Nurse Diabetes Educator; Referring Provider Internal Medicine Hematology & Oncology; Visit Provider Internal Medicine Hematology & Oncology
DX: Z12.31 Encounter for screening mammogram for malignant neoplasm of breast (principal); Z85.3 Personal history of malignant neoplasm of breast; Z80.3 Family history of malignant neoplasm of breast
CPT/HCPCS: 77063; 77067

== ENCOUNTER → 2022-11-07 10:59 | Outpatient (CLI) | payer MEDICARE, OTHER, SELFPAY ==
--- NOTE | 2022-11-07 11:01 | DI.MG.S_ITS ---
BILATERAL DIGITAL SCREENING MAMMOGRAM 3D/2D WITH CAD: 11/07/2022 CLINICAL: Routine screening. Breast cancer. Comparison is made to exams dated: 11/05/2021 mammogram, 11/04/2020 mammogram, 05/06/2020 mammogram, and 10/24/2019 mammogram - [facility]. Both breasts are heterogeneously dense, which may obscure small masses (category c / 51-75% glandular tissue). Current study was also evaluated with a Computer Aided Detection (CAD) system. There is a benign area of fat necrosis in the left breast. There also are benign post operative findings in the left breast. No significant masses, calcifications, or other findings are seen in either breast. There has been no significant interval change. IMPRESSION: BENIGN There is no mammographic evidence of malignancy. A 1 year screening mammogram is recommended. This exam was interpreted at Station ID: [id number]. NOTE: For mammograms, a report in lay terms will be sent to the patient. Approximately 15% of breast malignancies will not be visualized mammographically. In the management of a palpable breast mass, a negative mammogram must not discourage biopsy of a clinically suspicious lesion. Electronically Signed By: Elia roman/michael:11/07/2022 11:51:55 letter sent: Normal Exam ACR BI-RADS Category 2: Benign Finding(s) 3342F
== END ==
PROVIDERS: Family Provider Family Medicine; PCP Registered Nurse Diabetes Educator; Referring Provider Registered Nurse Diabetes Educator; Visit Provider Registered Nurse Diabetes Educator
DX: Z12.31 Encounter for screening mammogram for malignant neoplasm of breast (principal); C50.919 Malignant neoplasm of unspecified site of unspecified female breast
CPT/HCPCS: 77063; 77067

== ENCOUNTER → 2023-01-26 09:02 | Outpatient (CLI) | payer MEDICARE, OTHER, SELFPAY ==
[2023-01-26 10:00] LABS: HEMOLYSIS < 15 (0-50); Iron 108 ug/dL (37-170)
[2023-01-26 10:08] LABS: Cholesterol 292 mg/dL (140-199); Triglycerides 65 mg/dL (35-150)
--- NOTE | 2023-01-26 10:08 | DI.DEXA.S_ITS ---
Bone Density Report Name: SHAWN JEFFERSON Age: 77 Sex: Female Ethnicity: White Date of : 1945 Indication: osteopenia; Referring Provider: KENJI LANG Study: Bone densitometry was performed. Exam Date: January 26, 2023 Accession number: [id number] Bone Density: Region BMD T-score Z-score Classification AP Spine(L1-L4) 0.780 -2.4 0.0 Osteopenia Femoral Neck (Left) 0.627 -2.0 0.1 Osteopenia Total Hip (Left) 0.755 -1.5 0.3 Osteopenia Femoral Neck (Right) 0.629 -2.0 0.1 Osteopenia Total Hip (Right) 0.729 -1.7 0.1 Osteopenia Total Hip Mean 0.742 -1.6 0.2 Osteopenia World Health Organization criteria for BMD impression classify patients as: Normal (T-score at or above -1.0), Osteopenia (T-score between -1.0 and -2.5), or Osteoporosis (T-score at or below -2.5). 10-year Fracture Risk(1): Major Osteoporotic Fracture 13% Hip Fracture 3.4% Reported Risk Factors: [place] (), Neck BMD=0.627, BMI=23.8 (1) FRAX(R) Version 3.08. Fracture probability calculated for an untreated patient. Fracture probability may be lower if the patient has received treatment. Previous Exams: -- Region Exam Age BMD T-score BMD Change BMD Change Date g/cm2 vs Baseline vs Previous -- AP Spine (L1-L4) 01/26/2023 77 0.780 -2.4 -0.011 (-1.4%)# -0.011 (-1.4%)# 05/11/2020 75 0.791 -2.3 Total Hip(Left) 01/26/2023 77 0.755 -1.5 -0.031 (-4.0%)# -0.031 (-4.0%)# 05/11/2020 75 0.786 -1.3 Total Hip(Right) 01/26/2023 77 0.729 -1.7 -0.041 (-5.3%)# -0.041 (-5.3%)# 05/11/2020 75 0.770 -1.4 -- *Denotes significance at 95% confidence level, LSC for AP Spine = 0.022 g/cm2, LSC for Total Hip = 0.027 g/cm2 # Denotes dissimilar scan types or analysis methods Impression: The patient has low bone mass, based on the Total Spine T-score. The patient has an estimated ten-year risk of hip fracture of 3.4% and an estimated ten-year risk of major fracture of 13%, based on the WHO FRAX algorithm. No significant bone loss was observed. Discussion: BONE DENSITY IS LOW AT ONE OR MORE SKELETAL SITES. THE PATIENT'S BMD AND CLINICAL RISK FACTORS CONTRIBUTE TO THIS PATIENT'S INCREASED RISK OF FRACTURE. This patient's lowest T-score is low at one or more skeletal sites. It meets the World Health Organization's (WHO) criteria for ?low bone mass? (T-score between -1.0 and -2.5). The patient's 10-year risk of hip fracture as calculated by FRAX exceeds the threshold where pharmacological therapy is recommended by the National Osteoporosis Foundation (NOF). However, all treatment decisions require clinical judgment and consideration of individual patient factors, including patient preferences, comorbidities, previous drug use, risk factors not captured in the FRAX model (e.g., frailty, falls, vitamin D deficiency, increased bone turnover, interval significant decline in bone density) and possible under or overestimation of fracture risk by FRAX. The patient should follow a healthful lifestyle (good nutrition with adequate calcium and vitamin D, and appropriate weight-bearing exercise). Follow-Up: Consider a repeat BMD and Vertebral Fracture Assessment (VFA) exam in 2 years or sooner if medically necessary, to reassess this patient's status. Reported by: ROSSY BOYD M.D. on 01/26/2023 10:18:00 AM.
[2023-01-26 10:11] LABS: Percent Iron Saturation 40 % (15-50); Total Iron Binding Capacity 269 ug/dL (265-497); Transferrin 218 mg/dL (206-381)
[2023-01-26 10:42] LABS: Ferritin 110 ng/mL (11-264); Testosterone 17.9 ng/dL (5.71-77.0)
[2023-01-26 10:48] LABS: HDL Cholesterol 161 mg/dL (40-60); LDL Cholesterol Calculated 118 mg/dL (<100)
== END ==
PROVIDERS: Family Provider Family Medicine; PCP Registered Nurse Diabetes Educator; Referring Provider Registered Nurse Diabetes Educator; Visit Provider Registered Nurse Diabetes Educator
DX: M85.88 Other specified disorders of bone density and structure, other site (principal); L65.0 Telogen effluvium; E78.5 Hyperlipidemia, unspecified; L65.8 Other specified nonscarring hair loss; Z78.0 Asymptomatic menopausal state
CPT/HCPCS: 36415; 77080; 80061; 82627; 82728; 83540; 83550; 84403; 84443

== ENCOUNTER → 2023-05-30 10:44 | Outpatient (CLI) | payer MEDICARE, OTHER, SELFPAY ==
[2023-05-30 12:32] LABS: Erythrocyte Sedimentation Rate 13 MM/HR (0-20)
[2023-05-30 16:57] LABS: Ferritin 102 ng/mL (11-264)
== END ==
PROVIDERS: Family Provider Family Medicine; PCP Registered Nurse Diabetes Educator; Referring Provider Physician Assistant Medical; Visit Provider Physician Assistant Medical
DX: L65.9 Nonscarring hair loss, unspecified (principal); L64.8 Other androgenic alopecia
CPT/HCPCS: 36415; 82728; 85651

== ENCOUNTER → 2023-10-19 10:36 | Outpatient (CLI) | payer MEDICARE, OTHER, SELFPAY ==
--- NOTE | 2023-10-19 10:39 | DI.MG.S_ITS ---
BILATERAL DIGITAL SCREENING MAMMOGRAM 3D/2D WITH CAD: 10/19/2023 CLINICAL: Routine screening. Personal history of left breast cancer. Family History of breast cancer. Comparison is made to exams dated: 11/07/2022 mammogram, 11/05/2021 mammogram, and 11/04/2020 mammogram - [facility]. Both breasts are heterogeneously dense, which may obscure small masses (category c / 51-75% glandular tissue). Current study was also evaluated with a Computer Aided Detection (CAD) system. The left breast has post-operative findings. There is a possible developing new oval focal asymmetry in the right breast at 11 o'clock middle depth. There is architectural distortion associated with the focal asymmetry. No other significant masses, calcifications, or other findings are seen in either breast. IMPRESSION: INCOMPLETE: NEEDS ADDITIONAL IMAGING EVALUATION The possible developing new oval focal asymmetry with architectural distortion in the right breast is indeterminate. Additional views with possible ultrasound are recommended. This exam was interpreted at Station ID: [id number]. NOTE: For mammograms, a report in lay terms will be sent to the patient. Approximately 15% of breast malignancies will not be visualized mammographically. In the management of a palpable breast mass, a negative mammogram must not discourage biopsy of a clinically suspicious lesion. Electronically Signed By: Miles De Oliveira M.D. aty/:10/19/2023 12:30:00 letter sent: Additional Imaging Needed ACR BI-RADS Category 0: Incomplete 3340F
== END ==
LOC: MAMMO 10:38
PROVIDERS: Family Provider Family Medicine; PCP Registered Nurse Diabetes Educator; Referring Provider Registered Nurse Diabetes Educator; Visit Provider Registered Nurse Diabetes Educator
DX: Z12.31 Encounter for screening mammogram for malignant neoplasm of breast (principal); Z85.3 Personal history of malignant neoplasm of breast; Z80.3 Family history of malignant neoplasm of breast; R92.333 Mammographic heterogeneous density, bilateral breasts
CPT/HCPCS: 77063; 77067

== ENCOUNTER → 2023-10-20 10:06 | Outpatient (CLI) | payer MEDICARE, OTHER, SELFPAY ==
[2023-10-20 11:31] LABS: Hematocrit 39.3 % (36-46); Hemoglobin 13.2 g/dL (12.0-16.0); Mean Corpuscular HGB Conc 33.5 % (30-36); Mean Corpuscular Hemoglobin 30.4 PG (26-34); Mean Corpuscular Volume 90.9 fL (80-100); Platelet Count 409 X10^3/uL (150-400); Red Blood Cell Count 4.33 X10^6/uL (4.0-5.2); Red Cell Distribution Width 13.2 % (11.6-14.8); White Blood Cell Count 4.8 X10^3/uL (4.5-11.0)
[2023-10-20 11:59] LABS: Alanine Aminotransferase 22 IU/L (<35); Albumin 4.2 g/dL (3.5-5.0); Albumin Globulin Ratio 1.4 (1.0-2.8); Alkaline Phosphatase 84 U/L (38-126); Aspartate Aminotransferase 32 IU/L (14-36); BUN Creatinine Ratio 27.2 (6-22); Bilirubin Total 0.8 mg/dL (0.2-1.3); Blood Urea Nitrogen 22 mg/dL (7-17); Calcium 9.3 mg/dL (8.4-10.2); Carbon Dioxide 27 mmol/L (22-32); Chloride 105 mmol/L (98-107); Cholesterol 266 mg/dL (140-199); Estimated Glomerular Filt Rate > 60 mL/min (>60); Globulin 3.1 g/dL (1.7-4.1); Glucose 91 mg/dL (80-110); HEMOLYSIS < 15 (0-50); Potassium 4.3 mmol/L (3.4-5.1); Sodium 137 mmol/L (137-145); Total Protein 7.3 g/dL (6.3-8.2); Triglycerides 74 mg/dL (35-150)
[2023-10-20 12:08] LABS: HDL Cholesterol 125 mg/dL (40-60); LDL Cholesterol Calculated 126 mg/dL (<100)
== END ==
LOC: LAB 10:08
PROVIDERS: Family Provider Family Medicine; PCP Registered Nurse Diabetes Educator; Referring Provider Registered Nurse Diabetes Educator; Visit Provider Registered Nurse Diabetes Educator
DX: I10 Essential (primary) hypertension (principal)
CPT/HCPCS: 36415; 80053; 80061; 85027

== ENCOUNTER → 2023-11-07 10:07 | Outpatient (CLI) | payer MEDICARE, OTHER, SELFPAY ==
--- NOTE | 2023-11-07 | DI.MG.S_ITS ---
UNILATERAL RIGHT DIGITAL DIAGNOSTIC MAMMOGRAM 3D/2D WITH ADDITIONAL VIEWS: 11/07/2023 CLINICAL: Additional evaluation requested from prior study. Comparison is made to exams dated: 10/19/2023 mammogram, 11/07/2022 mammogram, and 11/05/2021 mammogram - [facility]. The right breast is heterogeneously dense, which may obscure small masses (category c / 51-75% glandular tissue). The previously described possible developing oval focal asymmetry in the right breast at 11 o'clock middle depth appears slighty less prominent but is still visible. There is mild architectural distortion associated with the focal asymmetry. No other significant masses or calcifications are seen in the breast. IMPRESSION: INCOMPLETE: NEEDS ADDITIONAL IMAGING EVALUATION The possible developing oval focal asymmetry in the right breast is indeterminate. An ultrasound is recommended for further evaluation and is scheduled to immediately follow this examination. This exam was interpreted at Station ID: [id number]. NOTE: For mammograms, a report in lay terms will be sent to the patient. Approximately 15% of breast malignancies will not be visualized mammographically. In the management of a palpable breast mass, a negative mammogram must not discourage biopsy of a clinically suspicious lesion. Electronically Signed By: Miles De Oliveira M.D. aty/:11/07/2023 18:28:19 ACR BI-RADS Category 0: Incomplete 3340F
--- NOTE | 2023-11-07 10:09 | DI.US.S_ITS ---
ULTRASOUND OF RIGHT BREAST: 11/07/2023 CLINICAL: Patient returns today to evaluate a focal asymmetry in the right breast. Comparison is made to exams dated: 11/07/2023 mammogram, 10/19/2023 mammogram, 11/07/2022 mammogram, and 11/05/2021 mammogram - [facility]. Real-time ultrasound of the right breast was performed. Bell scale images of the real-time examination were reviewed. No significant abnormalities were seen sonographically in the right breast. No correlate seen for subtle possible architectural distortion and asymmetry that appears less prominent visible on today's mammogram. Normal axillary lymph nodes. IMPRESSION: SUSPICIOUS OF MALIGNANCY There is no sonographic abnormality seen in the right breast to correspond with the mammography finding of suspected persistent small developing asymmetry with subtle architectural distortion. However, retrospective review of mammograms show that this finding was not visualized in 2020 mammogram but possibly seen on 2021 mammogram. Furthermore, it was not seen on 2022 mammogram and again noted in recent 2023 screening mammogram. There is dense fibroglandular tissue in this area and multiple overlapping structures likely related to Coopers ligaments. Overall, this finding is a low risk for malignancy and given patient's history of previous breast cancer, a stereotactic biopsy is recommended. Will attempt to reproduce this finding and if present, a biopsy will be performed. If this finding cannot be confidently reproduced for targeting, the patient will return in 6 months for follow up mammogram and ultrasound evaluation. Findings and recommendations were discussed with the patient over the telephone by Dr. De Oliveira during today's examination. This exam was interpreted at Station ID: [id number]. Electronically Signed By: Miles De Oliveira M.D. at/:11/07/2023 18:40:40 letter sent: Biopsy Required Ultrasound BI-RADS: 4a Low suspicion for malignancy
== END ==
PROVIDERS: Family Provider Family Medicine; PCP Registered Nurse Diabetes Educator; Referring Provider Registered Nurse Diabetes Educator; Visit Provider Registered Nurse Diabetes Educator
DX: R92.8 Other abnormal and inconclusive findings on diagnostic imaging of breast (principal); R92.331 Mammographic heterogeneous density, right breast
CPT/HCPCS: 76642; 77065; G0279

== ENCOUNTER → 2023-12-04 10:36 | Outpatient (CLI) | payer MEDICARE, OTHER, SELFPAY ==
--- NOTE | 2023-12-04 10:38 | DI.RAD.S_ITS ---
PROCEDURE: XR LUMBAR SPINE MIN 4V INDICATIONS: eval LBP with BLE radiculopathy, hx breast CA TECHNIQUE: 5 views of the lumbar spine acquired, including flexion and extension views. COMPARISON: [facility], CR, XR LUMBAR SPINE 2 OR 3VW, 02/16/2017, 14:10. [facility], CR, L-SPINE 2-3 VIEWS, 09/14/2015, 12:03. [facility], CR, L-SPINE 2-3 VIEWS, 06/03/2010, 15:45. FINDINGS: Bones: 5 nonrib-bearing vertebrae are present. Mild levoscoliosis. Small vertebral body osteophytes. Lower lumbar spine facet joint hypertrophy. No vertebral body compression fractures. No suspicious bony lesions. Moderate bilateral hip DJD. Soft tissues: Overlying bowel gas pattern is normal. No suspicious soft tissue calcifications. Lung bases are clear. Flexion/extension: There is normal range of motion, with preserved normal alignment. IMPRESSION: Moderate degenerative changes. No compression fracture. Dictated by: Nish Gonzales M.D. on 12/04/2023 at 21:44 Approved by: Nish Gonzales M.D. on 12/04/2023 at 21:46
--- NOTE | 2023-12-04 10:38 | DI.RAD.S_ITS ---
PROCEDURE: XR HIP W PEL IF DONE BREANNA MIN 4V INDICATIONS: eval bilateral hip pain, hx breast CA TECHNIQUE: AP pelvis with lateral view(s) of the both hip(s). COMPARISON: [facility], ANGELO, XR LUMBAR SPINE MIN 4V, 12/04/2023, 11:05. [facility], ANGELO, [id number] W PEL IF PERFORMED, 09/14/2015, 12:01. [facility], ANGELO, HIP 2V RIGHT, 06/03/2010, 15:45. FINDINGS: Bones: No fractures or dislocations. Mild to moderate bilateral hip DJD. Pelvic ring appears intact. No suspicious bony lesions. Soft tissues: The visualized bowel gas pattern is normal. No suspicious soft tissue calcifications. 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 Dictated by: Nish Gonzales M.D. on 12/04/2023 at 21:48 Approved by: Nish Gonzales M.D. on 12/04/2023 at 21:49
--- NOTE | 2023-12-04 10:38 | DI.RAD.S_ITS ---
PROCEDURE: XR SHOULDER RT MIN 2V INDICATIONS: R shoulder pain, hx breast CA TECHNIQUE: 3 views of the shoulder were acquired. COMPARISON: None. FINDINGS: Bones: No fractures or dislocations. Osteophytic lipping at the inferior humeral head. No suspicious bony lesions. Visualized ribs appear intact. Soft tissues: No suspicious soft tissue calcifications. IMPRESSION: [id number] right shoulder DJD. Dictated by: Nish Gonzales M.D. on 12/04/2023 at 21:46 Approved by: Nsih Gonzales M.D. on 12/04/2023 at 21:48
== END ==
PROVIDERS: Family Provider Family Medicine; PCP Registered Nurse Diabetes Educator; Referring Provider Registered Nurse Diabetes Educator; Visit Provider Registered Nurse Diabetes Educator
DX: M47.26 Other spondylosis with radiculopathy, lumbar region (principal); M16.0 Bilateral primary osteoarthritis of hip; M19.011 Primary osteoarthritis, right shoulder; M25.551 Pain in right hip; M25.552 Pain in left hip; M25.511 Pain in right shoulder; G89.29 Other chronic pain
CPT/HCPCS: 72110; 73030; 73522

== ENCOUNTER 2024-02-13 10:30 | Outpatient (RCR) | payer MEDICARE, OTHER, SELFPAY ==
--- NOTE | 2024-02-07 10:30 | PT.OPPOC ---
Physical, Occupational & Speech Therapy At [facility] Current Diagnoses Other chronic pain (02/07/24) Pain in right shoulder (02/07/24) Pain in right hip (02/07/24) Pain in left hip (02/07/24) Radiculopathy, lumbar region (02/07/24) Visit Care Team Role Provider Type Khang Epstein MD Family Provider Non-Staff Specialty: Family Practice Address: [address] [place] [address], [id number] Email: [email or web address] ALESSIA Ortiz Attending Provider [employer] Primary Care Provider Referring Provider Specialty: Medical Address: [address] [place] [address], [id number] Email: [email or web address] Plan Of Care PT-OP-T Assessment and Plan Start: 02/07/24 11:58 Freq: Status: Active Protocol: Document 02/07/24 09:50 DCW (Rec: 02/08/24 15:50 DCW [id number]) Physical Therapy Assessment Rehab Potential Rehabilitation Potential Excellent Evaluation Complexity Number of Personal Factors/Comorbidities 0 Number of Body Systems Impaired 4 or More Clinical Presentation at Evaluation Evolving Impairments Impairments Functional Activities, Functional Mobility,Pain,Soft Tissue Mobility,Tone Goals Two Impairment Pt experiences increased pain upon rising after sitting >30 minutes Alf Goal (LTG) Pt to report ability to sit for at least 60 minutes, and then get up and ambulate immediately upon standing without increased hip pain. LTG Duration 04/08/24 One Impairment Pt does not have an appropriate home exercise program Short Term Goal (STG) Pt to be independent and compliant with an appropriate HEP STG Duration 03/08/24 Assessment Summary Assessment Pt overall doing fairly well, unable to replicate pain with any lumbar or hip testing, although manual assessment of piriformis showed increased tone which pt noted was fairly similar to her normal complaints. Pt was very positive regarding piriformis testing, noted she felt like it was already helpful, and something she probably knew she should be doing, it is just a matter of making herself do it. Pt will likely transition pretty quickly to independent HEP, although may benefit from a few more PT appointments in order to assess effectiveness of stretches, as well as addition of STM and ER/IR strengthening. Physical Therapy Plan Frequency and Duration Frequency of Treatment 2x/Week Plan of Care Start Date 02/07/24 Plan of Care End Date 04/08/24 Therapeutic Interventions Therapeutic Interventions Home Exercise Program,Joint Mobilizations,Manual Therapy, Neuromuscular Re-education, Patient/Caregiver Education, Self-Care/Home Management,Soft Tissue Mobilization, Therapeutic Activities, Therapeutic Exercises Next Visit Focus/Plan Next Note Type Treatment Note Next Visit Plan ER/IR strengthening, STM, stretching Plan of Care Dates Plan of Care Start Date 02/07/24 Plan of Care End Date 04/08/24 Electronically Signed by: Bi Baeza, PT 02/08/24 3929 If you are in agreement with this Plan of Care, please return a signed and dated copy. I have reviewed this Plan of Care and certify that the skilled therapy services above are required to meet the patient?s needs. Physician Signature Date Printed Name and Credentials Clinical Instructor Signature Printed Name and Credentials
--- NOTE | 2024-02-07 10:30 | PT.OIE ---
Current Diagnoses Other chronic pain (02/07/24) Pain in right shoulder (02/07/24) Pain in right hip (02/07/24) Pain in left hip (02/07/24) Radiculopathy, lumbar region (02/07/24) Past Medical History (Last Updated 12/07/23 @ 08:09 by ALESSIA Ortiz) Allergies Chronic diarrhea Dyslipidemia Essential hypertension Hearing loss (~2016) Insomnia Osteopenia PMB (postmenopausal bleeding) Past Surgical History (Last Reviewed 12/07/23 @ 07:27 by ALESSIA Ortiz) Anesthesia History of third molar tooth extraction (~1964) Status post breast lumpectomy (~2014) Status post colonoscopy (~2012) Status post dilation and curettage (~2012) Visit Care Team Role Provider Type Khang Epstein MD Family Provider Non-Staff Specialty: Family Practice Address: [address] [place] [address], [id number] Email: [email or web address] ALESSIA Ortiz Attending Provider Advanced Floor Scraper Primary Care Provider Referring Provider Specialty: Medical Address: [address] [place] [address], [facility] Email: [email or web address] Physical Therapy Initial Evaluation PT-OP-A Visit Information Start: 02/07/24 11:58 Freq: Status: Active Protocol: Document 02/07/24 09:50 DCW (Rec: 02/07/24 12:00 DCW [id number]) Out-Patient Physical Therapy Visit Information Visit Information Visit Type Initial Evaluation Visit Start Time 09:50 Visit Stop Time 10:30 Visit Number 1 Number of QUILL CLEANER Visits 0 Evaluation Information Evaluation Date 02/07/24 PT-OP-B Current Condition Start: 02/07/24 11:58 Freq: Status: Active Protocol: Document 02/07/24 09:50 DCW (Rec: 02/08/24 15:38 DCW [id number]) Current Condition History of Current Condition Current Complaints Low back, posterior hip pain, occasionally radicular leg pain, R>L History of Current Condition Pt is a 79 year old female presenting with a history of worsening posterior hip pain. Pt has received hip x-rays, was surprised that it only said mild degenerative changes . Pt notes increased pain with sitting for extended periods of time and turning over in bed. Describes pain as a really deep tightness in her right posterior hip. Notes it does feel better with movement . PT-OP-C Subjective Start: 02/07/24 11:58 Freq: Status: Active Protocol: Document 02/07/24 09:50 DCW (Rec: 02/07/24 12:00 DCW [id number]) OP-PT Subjective Patient Comments Patient Comments It seems to be getting worse, but there are times where it isn't awful. Patient Reported Progress Worse PT-OP-F Manual Assessment Start: 02/07/24 11:58 Freq: Status: Active Protocol: Document 02/07/24 09:50 DCW (Rec: 02/08/24 15:30 DCW [id number]) Manual Assessments Soft Tissue Assessment Soft Tissue Mobility Assessment Mild-moderate tone glute med, ITB R>L. Moderate tone Piriformis, R>L Joint Mobility Assessment Joint Mobility Assessment Passive hip motion WNL, no signs of significant degenerative changes or pain PT-OP-K Range of Motion Start: 02/07/24 11:58 Freq: Status: Active Protocol: Document 02/07/24 09:50 DCW (Rec: 02/08/24 15:30 DCW [id number]) Hip Goniometric Range of Motion Hip ROM Limitations Comments Bilateral hip active and passive ROM WNL, pt does note mild tightness with R passive ER/IR PT-OP-L Special Tests Start: 02/07/24 11:58 Freq: Status: Active Protocol: Document 02/07/24 09:50 DCW (Rec: 02/08/24 15:30 DCW [id number]) Special Tests Lumbar Spine Special Tests Straight Leg Raise Test Results Negative Compression Test Results Negative A-P Shearing Test Results Negative Hip Special Tests Scour Test Test Results Negative Piriformis Test Results Positive R KEV Test Results Negative PT-OP-M Strength Start: 02/07/24 11:58 Freq: Status: Active Protocol: Document 02/07/24 09:50 DCW (Rec: 02/08/24 15:30 DCW [id number]) Hip Strength Hip Manual Muscle Testing Right Flexion (L2) 4+ Good+ Abduction 4+ Good+ Adduction 4+ Good+ External Rotation 4 Good Internal Rotation 4 Good Left Flexion (L2) 4+ Good+ Abduction 4+ Good+ Adduction 4+ Good+ External Rotation 4 Good Internal Rotation 4 Good PT-OP-Q Treatments Start: 02/07/24 11:58 Freq: Status: Active Protocol: Document 02/07/24 09:50 DCW (Rec: 02/07/24 12:01 DCW [id number]) Therapeutic Exercises Supine Exercises Piriformis Supine Exercise Name Figure-4, [id number] shoulder Side right Sitting Exercises Piriformis Sitting Exercise Name Seated figure-4 Side right PT-OP-T Assessment and Plan Start: 02/07/24 11:58 Freq: Status: Active Protocol: Document 02/07/24 09:50 DCW (Rec: 02/08/24 15:50 DCW [id number]) Physical Therapy Assessment Rehab Potential Rehabilitation Potential Excellent Evaluation Complexity Number of Personal Factors/Comorbidities 0 Number of Body Systems Impaired 4 or More Clinical Presentation at Evaluation Evolving Impairments Impairments Functional Activities, Functional Mobility,Pain,Soft Tissue Mobility,Tone Goals Two Impairment Pt experiences increased pain upon rising after sitting >30 minutes Sales Promoter Goal (LTG) Pt to report ability to sit for at least 60 minutes, and then get up and ambulate immediately upon standing without increased hip pain. LTG Duration 04/08/24 One Impairment Pt does not have an appropriate home exercise program Short Term Goal (STG) Pt to be independent and compliant with an appropriate HEP STG Duration 03/08/24 Assessment Summary Assessment Pt overall doing fairly well, unable to replicate pain with any lumbar or hip testing, although manual assessment of piriformis showed increased tone which pt noted was fairly similar to her normal complaints. Pt was very positive regarding piriformis testing, noted she felt like it was already helpful, and something she probably knew she should be doing, it is just a matter of making herself do it. Pt will likely transition pretty quickly to independent HEP, although may benefit from a few more PT appointments in order to assess effectiveness of stretches, as well as addition of STM and ER/IR strengthening. Physical Therapy Plan Frequency and Duration Frequency of Treatment 2x/Week Plan of Care Start Date 02/07/24 Plan of Care End Date 04/08/24 Therapeutic Interventions Therapeutic Interventions Home Exercise Program,Joint Mobilizations,Manual Therapy, Neuromuscular Re-education, Patient/Caregiver Education, Self-Care/Home Management,Soft Tissue Mobilization, Therapeutic Activities, Therapeutic Exercises Next Visit Focus/Plan Next Note Type Treatment Note Next Visit Plan ER/IR strengthening, STM, stretching
--- NOTE | 2024-02-09 09:31 | PT.OTN ---
Current Diagnoses Other chronic pain (02/09/24) Pain in right shoulder (02/09/24) Pain in right hip (02/09/24) Pain in left hip (02/09/24) Radiculopathy, lumbar region (02/09/24) Physical Therapy Treatment Note PT-OP-A Visit Information Start: 02/07/24 11:58 Freq: Status: Active Protocol: Document 02/09/24 09:00 DCW (Rec: 02/09/24 09:30 DCW [id number]) Out-Patient Physical Therapy Visit Information Visit Information Visit Type Treatment Note Visit Start Time 09:00 Visit Stop Time 09:30 Visit Number 2 Number of BLOCK SPLITTER OPERATOR Visits 0 Evaluation Information Evaluation Date 02/07/24 PT-OP-B Current Condition Start: 02/07/24 11:58 Freq: Status: Active Protocol: Document 02/07/24 09:50 DCW (Rec: 02/08/24 15:38 DCW [id number]) Current Condition History of Current Condition Current Complaints Low back, posterior hip pain, occasionally radicular leg pain, R>L History of Current Condition Pt is a 79 year old female presenting with a history of worsening posterior hip pain. Pt has received hip x-rays, was surprised that it only said mild degenerative changes . Pt notes increased pain with sitting for extended periods of time and turning over in bed. Describes pain as a really deep tightness in her right posterior hip. Notes it does feel better with movement . PT-OP-C Subjective Start: 02/07/24 11:58 Freq: Status: Active Protocol: Document 02/09/24 09:00 DCW (Rec: 02/09/24 09:30 DCW [id number]) OP-PT Subjective Patient Comments Patient Comments Pt notes she has been doing her stretching, has gotten a few good night's sleep, so feeling pretty good this morning. PT-OP-F Manual Assessment Start: 02/07/24 11:58 Freq: Status: Active Protocol: Document 02/07/24 09:50 DCW (Rec: 02/08/24 15:30 DCW [id number]) Manual Assessments Soft Tissue Assessment Soft Tissue Mobility Assessment Mild-moderate tone glute med, ITB R>L. Moderate tone Piriformis, R>L Joint Mobility Assessment Joint Mobility Assessment Passive hip motion WNL, no signs of significant degenerative changes or pain PT-OP-K Range of Motion Start: 02/07/24 11:58 Freq: Status: Active Protocol: Document 02/07/24 09:50 DCW (Rec: 02/08/24 15:30 DCW [id number]) Hip Goniometric Range of Motion Hip ROM Limitations Comments Bilateral hip active and passive ROM WNL, pt does note mild tightness with R passive ER/IR PT-OP-L Special Tests Start: 02/07/24 11:58 Freq: Status: Active Protocol: Document 02/07/24 09:50 DCW (Rec: 02/08/24 15:30 DCW [id number]) Special Tests Lumbar Spine Special Tests Straight Leg Raise Test Results Negative Compression Test Results Negative A-P Shearing Test Results Negative Hip Special Tests Scour Test Test Results Negative Piriformis Test Results Positive R KEV Test Results Negative PT-OP-M Strength Start: 02/07/24 11:58 Freq: Status: Active Protocol: Document 02/07/24 09:50 DCW (Rec: 02/08/24 15:30 DCW [id number]) Hip Strength Hip Manual Muscle Testing Right Flexion (L2) 4+ Good+ Abduction 4+ Good+ Adduction 4+ Good+ External Rotation 4 Good Internal Rotation 4 Good Left Flexion (L2) 4+ Good+ Abduction 4+ Good+ Adduction 4+ Good+ External Rotation 4 Good Internal Rotation 4 Good PT-OP-Q Treatments Start: 02/07/24 11:58 Freq: Status: Active Protocol: Document 02/09/24 09:00 DCW (Rec: 02/09/24 09:30 DCW [id number]) Therapeutic Exercises Sidelying Exercises Hip Abduction Sidelying Exercise Name Hip Abduction Reverse Clamshell Sidelying Exercise Name Reverse Clamshell Clamshell Sidelying Exercise Name Clamshell Manual Therapy Treatment Consent Patient gave verbal consent for manual Yes treatment Soft Tissue Mobilization Piriformis Body Location R Piriformis Mobilization Type Strumming,Sustained Pressure PT-OP-T Assessment and Plan Start: 02/07/24 11:58 Freq: Status: Active Protocol: Document 02/09/24 09:00 DCW (Rec: 02/09/24 09:30 DCW [id number]) Physical Therapy Assessment Impairments Impairments Functional Activities, Functional Mobility,Pain,Soft Tissue Mobility,Tone Goals Two Impairment Pt experiences increased pain upon rising after sitting >30 minutes Computer Training Specialist Goal (LTG) Pt to report ability to sit for at least 60 minutes, and then get up and ambulate immediately upon standing without increased hip pain. LTG Duration 04/08/24 One Impairment Pt does not have an appropriate home exercise program Short Term Goal (STG) Pt to be independent and compliant with an appropriate HEP STG Duration 03/08/24 Assessment Summary Assessment Good response to STM, pt appeared to do well with new exercises provided for HEP, however does have difficulty spending extended time in side -lying due to hip pain. Physical Therapy Plan Frequency and Duration Frequency of Treatment 2x/Week Plan of Care Start Date 02/07/24 Plan of Care End Date 04/08/24 Therapeutic Interventions Therapeutic Interventions Home Exercise Program,Joint Mobilizations,Manual Therapy, Neuromuscular Re-education, Patient/Caregiver Education, Self-Care/Home Management,Soft Tissue Mobilization, Therapeutic Activities, Therapeutic Exercises Next Visit Focus/Plan Next Note Type Treatment Note Next Visit Plan ER/IR strengthening, STM, stretching
--- NOTE | 2024-02-13 11:01 | PT.OTN ---
Current Diagnoses Other chronic pain (02/13/24) Pain in right shoulder (02/13/24) Pain in right hip (02/13/24) Pain in left hip (02/13/24) Radiculopathy, lumbar region (02/13/24) Physical Therapy Treatment Note PT-OP-A Visit Information Start: 02/07/24 11:58 Freq: Status: Active Protocol: Document 02/13/24 10:30 DCW (Rec: 02/13/24 11:01 DCW [id number]) Out-Patient Physical Therapy Visit Information Visit Information Visit Type Treatment Note Visit Start Time 10:30 Visit Stop Time 10:45 Visit Number 3 Number of BARREL BURNER Visits 0 Evaluation Information Evaluation Date 02/07/24 PT-OP-B Current Condition Start: 02/07/24 11:58 Freq: Status: Active Protocol: Document 02/07/24 09:50 DCW (Rec: 02/08/24 15:38 DCW [id number]) Current Condition History of Current Condition Current Complaints Low back, posterior hip pain, occasionally radicular leg pain, R>L History of Current Condition Pt is a 79 year old female presenting with a history of worsening posterior hip pain. Pt has received hip x-rays, was surprised that it only said mild degenerative changes . Pt notes increased pain with sitting for extended periods of time and turning over in bed. Describes pain as a really deep tightness in her right posterior hip. Notes it does feel better with movement . PT-OP-C Subjective Start: 02/07/24 11:58 Freq: Status: Active Protocol: Document 02/13/24 10:30 DCW (Rec: 02/13/24 11:01 DCW [id number]) OP-PT Subjective Patient Comments Patient Comments Pt notes that on Monday, she had an episode of vertigo, which is a first for her. PT-OP-F Manual Assessment Start: 02/07/24 11:58 Freq: Status: Active Protocol: Document 02/07/24 09:50 DCW (Rec: 02/08/24 15:30 DCW [id number]) Manual Assessments Soft Tissue Assessment Soft Tissue Mobility Assessment Mild-moderate tone glute med, ITB R>L. Moderate tone Piriformis, R>L Joint Mobility Assessment Joint Mobility Assessment Passive hip motion WNL, no signs of significant degenerative changes or pain PT-OP-K Range of Motion Start: 02/07/24 11:58 Freq: Status: Active Protocol: Document 02/07/24 09:50 DCW (Rec: 02/08/24 15:30 DCW [id number]) Hip Goniometric Range of Motion Hip ROM Limitations Comments Bilateral hip active and passive ROM WNL, pt does note mild tightness with R passive ER/IR PT-OP-L Special Tests Start: 02/07/24 11:58 Freq: Status: Active Protocol: Document 02/07/24 09:50 DCW (Rec: 02/08/24 15:30 DCW [id number]) Special Tests Lumbar Spine Special Tests Straight Leg Raise Test Results Negative Compression Test Results Negative A-P Shearing Test Results Negative Hip Special Tests Scour Test Test Results Negative Piriformis Test Results Positive R KEV Test Results Negative PT-OP-M Strength Start: 02/07/24 11:58 Freq: Status: Active Protocol: Document 02/07/24 09:50 DCW (Rec: 02/08/24 15:30 DCW [id number]) Hip Strength Hip Manual Muscle Testing Right Flexion (L2) 4+ Good+ Abduction 4+ Good+ Adduction 4+ Good+ External Rotation 4 Good Internal Rotation 4 Good Left Flexion (L2) 4+ Good+ Abduction 4+ Good+ Adduction 4+ Good+ External Rotation 4 Good Internal Rotation 4 Good PT-OP-Q Treatments Start: 02/07/24 11:58 Freq: Status: Active Protocol: Document 02/13/24 10:30 DCW (Rec: 02/13/24 11:01 DCW [id number]) Self-Care/Home Management Treatment Education Other Education Discussion of ongoing HEP, continued pains and limitations related to her ongoing hip pain, as well as recommendations for pt to see PCP for new referral due to ongoing complaint of vertigo. PT-OP-T Assessment and Plan Start: 02/07/24 11:58 Freq: Status: Active Protocol: Document 02/13/24 10:30 DCW (Rec: 02/13/24 11:01 DCW [id number]) Physical Therapy Assessment Impairments Impairments Functional Activities, Functional Mobility,Pain,Soft Tissue Mobility,Tone Goals Two Impairment Pt experiences increased pain upon rising after sitting >30 minutes Child Development Specialist Goal (LTG) Pt to report ability to sit for at least 60 minutes, and then get up and ambulate immediately upon standing without increased hip pain. LTG Duration 04/08/24 One Impairment Pt does not have an appropriate home exercise program Short Term Goal (STG) Pt to be independent and compliant with an appropriate HEP STG Duration 03/08/24 Assessment Summary Assessment Due to vertigo, which is reportedly positional in nature, pt resistant to performing her exercises for her hip, as well as didn't want to get onto plinth for STM. Recommended pt go to PCP for new vestibular referral. If this happens, pt's current PT chart with be discharged in order to allow for pt to have new referral for vertigo Physical Therapy Plan Frequency and Duration Frequency of Treatment 2x/Week Plan of Care Start Date 02/07/24 Plan of Care End Date 04/08/24 Therapeutic Interventions Therapeutic Interventions Home Exercise Program,Joint Mobilizations,Manual Therapy, Neuromuscular Re-education, Patient/Caregiver Education, Self-Care/Home Management,Soft Tissue Mobilization, Therapeutic Activities, Therapeutic Exercises Next Visit Focus/Plan Next Note Type Treatment Note Next Visit Plan ER/IR strengthening, STM, stretching
--- NOTE | 2024-02-19 10:03 | PT.OPDS ---
Current Diagnoses Other chronic pain (02/13/24) Pain in right shoulder (02/13/24) Pain in right hip (02/13/24) Pain in left hip (02/13/24) Radiculopathy, lumbar region (02/13/24) Visit Care Team Role Provider Type Khang Epstein MD Family Provider Non-Staff Specialty: Family Practice Address: [address] [place] [address], [id number] Email: [email or web address] ALESSIA Ortiz Attending Provider Advanced Lehr Stripper Primary Care Provider Referring Provider Specialty: Medical Address: [address] [place] [address], [id number] Email: [email or web address] Visit Number Visit Number 3 Discharge Summary PT-OP-B Current Condition Start: 02/07/24 11:58 Freq: Status: Active Protocol: Document 02/07/24 09:50 DCW (Rec: 02/08/24 15:38 DCW [id number]) Current Condition History of Current Condition Current Complaints Low back, posterior hip pain, occasionally radicular leg pain, R>L History of Current Condition Pt is a 79 year old female presenting with a history of worsening posterior hip pain. Pt has received hip x-rays, was surprised that it only said mild degenerative changes . Pt notes increased pain with sitting for extended periods of time and turning over in bed. Describes pain as a really deep tightness in her right posterior hip. Notes it does feel better with movement . PT-OP-C Subjective Start: 02/07/24 11:58 Freq: Status: Active Protocol: Document 02/13/24 10:30 DCW (Rec: 02/13/24 11:01 DCW [id number]) OP-PT Subjective Patient Comments Patient Comments Pt notes that on Monday, she had an episode of vertigo, which is a first for her. PT-OP-F Manual Assessment Start: 02/07/24 11:58 Freq: Status: Active Protocol: Document 02/07/24 09:50 DCW (Rec: 02/08/24 15:30 DCW [id number]) Manual Assessments Soft Tissue Assessment Soft Tissue Mobility Assessment Mild-moderate tone glute med, ITB R>L. Moderate tone Piriformis, R>L Joint Mobility Assessment Joint Mobility Assessment Passive hip motion WNL, no signs of significant degenerative changes or pain PT-OP-K Range of Motion Start: 02/07/24 11:58 Freq: Status: Active Protocol: Document 02/07/24 09:50 DCW (Rec: 02/08/24 15:30 DCW [id number]) Hip Goniometric Range of Motion Hip ROM Limitations Comments Bilateral hip active and passive ROM WNL, pt does note mild tightness with R passive ER/IR PT-OP-L Special Tests Start: 02/07/24 11:58 Freq: Status: Active Protocol: Document 02/07/24 09:50 DCW (Rec: 02/08/24 15:30 DCW [id number]) Special Tests Lumbar Spine Special Tests Straight Leg Raise Test Results Negative Compression Test Results Negative A-P Shearing Test Results Negative Hip Special Tests Scour Test Test Results Negative Piriformis Test Results Positive R KEV Test Results Negative PT-OP-M Strength Start: 02/07/24 11:58 Freq: Status: Active Protocol: Document 02/07/24 09:50 DCW (Rec: 02/08/24 15:30 DCW [id number]) Hip Strength Hip Manual Muscle Testing Right Flexion (L2) 4+ Good+ Abduction 4+ Good+ Adduction 4+ Good+ External Rotation 4 Good Internal Rotation 4 Good Left Flexion (L2) 4+ Good+ Abduction 4+ Good+ Adduction 4+ Good+ External Rotation 4 Good Internal Rotation 4 Good PT-OP-T Assessment and Plan Start: 02/07/24 11:58 Freq: Status: Active Protocol: Document 02/19/24 10:01 DCW (Rec: 02/19/24 10:03 DCW [id number]) Physical Therapy Assessment Assessment Summary Assessment Pt arrived for her follow-up appointment, but still struggling with dizziness, has new referral for vertigo. Pt will be discharged from skilled therapy at this time for her back/hip, due to changes in medical status, and will be scheduled for a new evaluation for vestibular therapy. Physical Therapy Plan Discharge Physical Therapy Discharge Reasons Change in Medical Status Next Visit Focus/Plan Next Note Type Discharge Summary
== END 2024-02-20 14:02 | disposition home or self-care (01) ==
LOC: PHYS 10:30
PROVIDERS: Family Provider Family Medicine; PCP Registered Nurse Diabetes Educator; Referring Provider Registered Nurse Diabetes Educator; Visit Provider Registered Nurse Diabetes Educator
DX: M54.16 Radiculopathy, lumbar region (principal); G89.29 Other chronic pain; M25.551 Pain in right hip; M25.552 Pain in left hip; M25.511 Pain in right shoulder
CPT/HCPCS: 97110; 97140; 97161; 97535

== ENCOUNTER 2024-02-23 12:00 | Outpatient (RCR) | payer MEDICARE, OTHER, SELFPAY ==
--- NOTE | 2024-02-19 16:33 | PT.OIE ---
Current Diagnoses Benign paroxysmal vertigo, left ear (02/19/24) Unspecified hearing loss, unspecified ear (02/19/24) Unsteadiness on feet (02/19/24) Dizziness and giddiness (02/19/24) Past Medical History (Last Updated 12/07/23 @ 08:09 by ALESSIA Ortiz) Allergies Chronic diarrhea Dyslipidemia Essential hypertension Hearing loss (~2016) Insomnia Osteopenia PMB (postmenopausal bleeding) Past Surgical History (Last Reviewed 12/07/23 @ 07:27 by ALESSIA Ortiz) Anesthesia History of third molar tooth extraction (~1964) Status post breast lumpectomy (~2014) Status post colonoscopy (~2012) Status post dilation and curettage (~2012) Visit Care Team Role Provider Type ALESSIA Ortiz Primary Care Provider Advanced Ladle Handler Specialty: Medical Address: [address] [place] [address], [id number] Email: [email or web address] Khang Epstein MD Family Provider Non-Staff Specialty: Family Practice Address: [address] [place] [address], [id number] Email: [email or web address] Jo PA-C Attending Provider Advanced Ladle Handler Referring Provider Specialty: Medical Address: [address] [place] [address], [address], [address] Email: [email or web address] Physical Therapy Initial Evaluation PT-OP-A Visit Information Start: 02/19/24 16:15 Freq: Status: Active Protocol: Document 02/19/24 10:15 DCW (Rec: 02/19/24 16:33 DCW [id number]) Out-Patient Physical Therapy Visit Information Visit Information Visit Type Initial Evaluation Visit Start Time 10:15 Visit Stop Time 11:00 Visit Number 1 Number of BRIM CUTTER Visits 0 Evaluation Information Evaluation Date 02/19/24 PT-OP-B Current Condition Start: 02/19/24 16:15 Freq: Status: Active Protocol: Document 02/19/24 10:15 DCW (Rec: 02/19/24 16:33 DCW [id number]) Current Condition History of Current Condition Onset Date One week Current Complaints Dizziness, unsteadiness History of Current Condition Pt is a 79 year old female complaining of a one week history of an initial episode of vertigo followed by a general sense of uneasiness and unsteadiness. Pt reports initial episode seemed to last ~30 minutes. Symptoms are worse with positional changes or fast movement. Pt denies recent hearing changes, dysarthria, discoordination, or decreased mentation/ consciousness. Pt does have a history of HTN, and was recently placed on medication to help. Up until last week, pt had been getting treated in PT for back/hip pain, but vertigo was impacting her ability to participate in activities, so that case was discharged, and pt now returns with a new referral for vestibular rehabilitation. Due to pt reports of HTN and recent addition of medications , BP was measured before other testing was performed, today 139/84. Treatment Goals Patient/Caregiver Goals Eliminate dizziness and unsteadiness PT-OP-C Subjective Start: 02/19/24 16:15 Freq: Status: Active Protocol: Document 02/19/24 10:15 DCW (Rec: 02/19/24 16:33 DCW [id number]) OP-PT Subjective Patient Comments Patient Comments I've just been basically avoiding anything that might make it feel worse. Patient Questionnaires Dizziness Handicap Inventory DHI Score 22% PT-OP-O Vestibular Start: 02/19/24 16:15 Freq: Status: Active Protocol: Document 02/19/24 10:15 DCW (Rec: 02/19/24 16:33 DCW [id number]) Vestibular Assessment Auditory Tests Price Test Within normal limits Air Conduction Results Right Greater Visual Testing Smooth Pursuits Horizontal WNL Smooth Pursuits Vertical WNL Saccades Horizontal WNL Heave Test Positive Bilateral Thrust Head Positive Bilateral Positional Testing [place]-Hallpike Positive Left,Negative Right, Upbeating,< 60 Seconds PT-OP-Q Treatments Start: 02/19/24 16:15 Freq: Status: Active Protocol: Document 02/19/24 10:15 DCW (Rec: 02/19/24 16:33 DCW [id number]) Canalithic Repositioning BPPV Treatment Pavel Affected Canal(s) Left posterior Reps x2 Comments Modified Pavel PT-OP-T Assessment and Plan Start: 02/19/24 16:15 Freq: Status: Active Protocol: Document 02/19/24 10:15 DCW (Rec: 02/19/24 16:33 DCW [id number]) Physical Therapy Assessment Rehab Potential Rehabilitation Potential Good Evaluation Complexity Number of Personal Factors/Comorbidities 3 or More Number of Body Systems Impaired 4 or More Clinical Presentation at Evaluation Unstable Impairments Impairments Balance,Coordination, Functional Mobility,Vestibular Goals One Impairment Positive left Lan-Hallpike Prison Goal (LTG) Pt to exhibit negative positional testing bilaterally to demonstrate decreased BPPV symptoms LTG Duration 04/21/24 Assessment Summary Assessment During left [place]-Hallpike test, pt complained of vertigo and demonstrated up-beating, torsional nystagmus lasting approximately 10 seconds, consistent with diagnosis of left-sided posterior canal BPPV, canalithiasis-type. Pt was treated with a left-sided modified Pavel maneuver. Pt complained of symptoms in the first and third position, which is normally indicative of a successful treatment. Further positional testing was negative. Pt was educated on BPPV, expectations for treatment, possible recurrence (BPPV has a ~50% recurrence rate in the five years following treatment), and post -Pavel restrictions. Pt to return in ~1 week for a follow -up appointment, and intermittently afterward as indicated for treatment of BPPV. As pt's symptoms began shortly after starting new HTN medication, if pt does not respond well to treatment, may need to return to PCP for discussion regarding medications/side-effects. Physical Therapy Plan Frequency and Duration Frequency of Treatment 1-2x/week Plan of Care Start Date 02/19/24 Plan of Care End Date 04/21/24 Therapeutic Interventions Therapeutic Interventions Balance Training,Canalithic Repositioning,Home Exercise Program,Manual Therapy, Neuromuscular Re-education, Patient/Caregiver Education, Self-Care/Home Management, Therapeutic Activities, Therapeutic Exercises, Vestibular Rehabilitation Next Visit Focus/Plan Next Note Type Treatment Note Next Visit Plan Positional testing, CRM as indicated, balance testing as indicated
--- NOTE | 2024-02-19 16:33 | PT.OPPOC ---
Physical, Occupational & Speech Therapy At [facility] Current Diagnoses Benign paroxysmal vertigo, left ear (02/19/24) Unspecified hearing loss, unspecified ear (02/19/24) Unsteadiness on feet (02/19/24) Dizziness and giddiness (02/19/24) Visit Care Team Role Provider Type ALESSIA Ortiz Primary Care Provider Advanced Dietary Aide Specialty: Medical Address: [address] [place] [address], [id number] Email: [email or web address] Khang Epstein MD Family Provider Non-Staff Specialty: Family Practice Address: [address] [place] [address], [id number] Email: [email or web address] Iraida Jo PA-C Attending Provider Advanced Dietary Aide Referring Provider Specialty: Medical Address: [address] [place] [address], [address], [address] Email: [email or web address] Plan Of Care PT-OP-T Assessment and Plan Start: 02/19/24 16:15 Freq: Status: Active Protocol: Document 02/19/24 10:15 DCW (Rec: 02/19/24 16:33 DCW [id number]) Physical Therapy Assessment Rehab Potential Rehabilitation Potential Good Evaluation Complexity Number of Personal Factors/Comorbidities 3 or More Number of Body Systems Impaired 4 or More Clinical Presentation at Evaluation Unstable Impairments Impairments Balance,Coordination, Functional Mobility,Vestibular Goals One Impairment Positive left [place]-Hallpike Manager Pulmonary Goal (LTG) Pt to exhibit negative positional testing bilaterally to demonstrate decreased BPPV symptoms LTG Duration 04/21/24 Assessment Summary Assessment During left Lan-Hallpike test, pt complained of vertigo and demonstrated up-beating, torsional nystagmus lasting approximately 10 seconds, consistent with diagnosis of left-sided posterior canal BPPV, canalithiasis-type. Pt was treated with a left-sided modified Pavel maneuver. Pt complained of symptoms in the first and third position, which is normally indicative of a successful treatment. Further positional testing was negative. Pt was educated on BPPV, expectations for treatment, possible recurrence (BPPV has a ~50% recurrence rate in the five years following treatment), and post -Pavel restrictions. Pt to return in ~1 week for a follow -up appointment, and intermittently afterward as indicated for treatment of BPPV. As pt's symptoms began shortly after starting new HTN medication, if pt does not respond well to treatment, may need to return to PCP for discussion regarding medications/side-effects. Physical Therapy Plan Frequency and Duration Frequency of Treatment 1-2x/week Plan of Care Start Date 02/19/24 Plan of Care End Date 04/21/24 Therapeutic Interventions Therapeutic Interventions Balance Training,Canalithic Repositioning,Home Exercise Program,Manual Therapy, Neuromuscular Re-education, Patient/Caregiver Education, Self-Care/Home Management, Therapeutic Activities, Therapeutic Exercises, Vestibular Rehabilitation Next Visit Focus/Plan Next Note Type Treatment Note Next Visit Plan Positional testing, CRM as indicated, balance testing as indicated Plan of Care Dates Plan of Care Start Date 02/19/24 Plan of Care End Date 04/21/24 Electronically Signed by: Bi Baeza, PT 02/19/24 2488 If you are in agreement with this Plan of Care, please return a signed and dated copy. I have reviewed this Plan of Care and certify that the skilled therapy services above are required to meet the patient?s needs. Physician Signature Date Printed Name and Credentials Clinical Instructor Signature Printed Name and Credentials
--- NOTE | 2024-02-23 12:22 | PT.OPDS ---
Current Diagnoses Benign paroxysmal vertigo, left ear (02/23/24) Unspecified hearing loss, unspecified ear (02/23/24) Unsteadiness on feet (02/23/24) Dizziness and giddiness (02/23/24) Visit Care Team Role Provider Type ALESSIA Ortiz Primary Care Provider Advanced Internet Sales Representative Specialty: Medical Address: [address] [place] [address], [address] Email: [email or web address] Khang Epstein MD Family Provider Non-Staff Specialty: Family Practice Address: [address] [place] [address], [address] Email: [email or web address] Iraida Jo PA-C Attending Provider Advanced Internet Sales Representative Referring Provider Specialty: Medical Address: [address] [place] [address], [place] [address], [place], [address] Email: [email or web address] Visit Number Visit Number 2 Discharge Summary PT-OP-B Current Condition Start: 02/19/24 16:15 Freq: Status: Active Protocol: Document 02/19/24 10:15 DCW (Rec: 02/19/24 16:33 DCW [id number]) Current Condition History of Current Condition Onset Date One week Current Complaints Dizziness, unsteadiness History of Current Condition Pt is a 79 year old female complaining of a one week history of an initial episode of vertigo followed by a general sense of uneasiness and unsteadiness. Pt reports initial episode seemed to last ~30 minutes. Symptoms are worse with positional changes or fast movement. Pt denies recent hearing changes, dysarthria, discoordination, or decreased mentation/ consciousness. Pt does have a history of HTN, and was recently placed on medication to help. Up until last week, pt had been getting treated in PT for back/hip pain, but vertigo was impacting her ability to participate in activities, so that case was discharged, and pt now returns with a new referral for vestibular rehabilitation. Due to pt reports of HTN and recent addition of medications , BP was measured before other testing was performed, today 139/84. Treatment Goals Patient/Caregiver Goals Eliminate dizziness and unsteadiness PT-OP-C Subjective Start: 02/19/24 16:15 Freq: Status: Active Protocol: Document 02/23/24 12:00 DCW (Rec: 02/23/24 12:21 DCW [id number]) OP-PT Subjective Patient Comments Patient Comments No episodes of dizziness since initial evaluation, every once and a while a strange little feeling, but even that hasn't happened for a few days . PT-OP-O Vestibular Start: 02/19/24 16:15 Freq: Status: Active Protocol: Document 02/23/24 12:00 DCW (Rec: 02/23/24 12:21 DCW [id number]) Vestibular Assessment Positional Testing [place]-Hallpike Negative Left,Negative Right PT-OP-T Assessment and Plan Start: 02/19/24 16:15 Freq: Status: Active Protocol: Document 02/23/24 12:00 DCW (Rec: 02/23/24 12:21 DCW [id number]) Physical Therapy Assessment Impairments Impairments Balance,Coordination, Functional Mobility,Vestibular Goals One Impairment Positive left Lan-Hallpike School Plant Consultant Goal (LTG) Pt to exhibit negative positional testing bilaterally to demonstrate decreased BPPV symptoms LTG Duration Met Progress Towards Goals Progress Towards Goals Goals Met Assessment Summary Assessment Pt asymptomatic at this time, positional testing entirely negative. Pt happy with overall results. Reviewed potential for recurrence. Pt agreeable to discharge from vestibular therapy at this time. Physical Therapy Plan Frequency and Duration Frequency of Treatment 1-2x/week Plan of Care Start Date 02/19/24 Plan of Care End Date 04/21/24 Therapeutic Interventions Therapeutic Interventions Balance Training,Canalithic Repositioning,Home Exercise Program,Manual Therapy, Neuromuscular Re-education, Patient/Caregiver Education, Self-Care/Home Management, Therapeutic Activities, Therapeutic Exercises, Vestibular Rehabilitation Discharge Physical Therapy Discharge Reasons Goals Met Next Visit Focus/Plan Next Note Type Discharge Summary
== END 2024-02-28 10:15 | disposition home or self-care (01) ==
LOC: PHYS 12:00
PROVIDERS: Family Provider Family Medicine; PCP Registered Nurse Diabetes Educator; Referring Provider Physician Assistant; Visit Provider Physician Assistant
DX: H91.90 Unspecified hearing loss, unspecified ear (principal); H81.12 Benign paroxysmal vertigo, left ear; R26.81 Unsteadiness on feet
CPT/HCPCS: 95992; 97140; 97163

== ENCOUNTER → 2024-10-21 08:05 | Outpatient (CLI) | payer MEDICARE, OTHER, SELFPAY ==
[2024-10-21 09:38] LABS: Hematocrit 38.2 % (36-46); Hemoglobin 12.9 g/dL (12.0-16.0); Mean Corpuscular HGB Conc 33.7 % (30-36); Mean Corpuscular Hemoglobin 30.4 PG (26-34); Mean Corpuscular Volume 90.2 fL (80-100); Platelet Count 436 X10^3/uL (150-400); Red Blood Cell Count 4.24 X10^6/uL (4.0-5.2); Red Cell Distribution Width 13.5 % (11.6-14.8); White Blood Cell Count 5.1 X10^3/uL (4.5-11.0)
[2024-10-21 10:03] LABS: Alanine Aminotransferase 23 IU/L (<35); Albumin 4.2 g/dL (3.5-5.0); Albumin Globulin Ratio 1.8 (1.0-2.8); Alkaline Phosphatase 93 U/L (38-126); Aspartate Aminotransferase 30 IU/L (14-36); BUN Creatinine Ratio 20.2 (6-22); Bilirubin Total 0.8 mg/dL (0.2-1.3); Blood Urea Nitrogen 17 mg/dL (7-17); Calcium 9.8 mg/dL (8.4-10.2); Carbon Dioxide 26 mmol/L (22-32); Chloride 102 mmol/L (98-107); Cholesterol 310 mg/dL (140-199); Estimated Glomerular Filt Rate > 60 mL/min (>60); Globulin 2.4 g/dL (1.7-4.1); Glucose 96 mg/dL (80-110); HEMOLYSIS < 15 (0-50); Potassium 4.7 mmol/L (3.4-5.1); Sodium 135 mmol/L (137-145); Total Protein 6.6 g/dL (6.3-8.2); Triglycerides 101 mg/dL (35-150)
[2024-10-21 10:10] LABS: HDL Cholesterol 138 mg/dL (40-60); LDL Cholesterol Calculated 152 mg/dL (<100)
== END ==
PROVIDERS: Family Provider Registered Nurse Diabetes Educator; PCP Registered Nurse Diabetes Educator; Referring Provider Registered Nurse Diabetes Educator; Visit Provider Registered Nurse Diabetes Educator
DX: E78.5 Hyperlipidemia, unspecified (principal); I10 Essential (primary) hypertension; R79.89 Other specified abnormal findings of blood chemistry
CPT/HCPCS: 36415; 80053; 80061; 85027

== ENCOUNTER 2024-12-11 09:45 | Outpatient (RCR) | payer MEDICARE, OTHER, SELFPAY ==
--- NOTE | 2024-11-28 12:47 | PT.OPPOC ---
Physical, Occupational & Speech Therapy At [facility] Current Diagnoses Other chronic pain (11/28/24) Pain in right shoulder (11/28/24) Pain in right hip (11/28/24) Pain in left hip (11/28/24) Radiculopathy, lumbar region (11/28/24) Other low back pain (11/28/24) Visit Care Team Role Provider Type ALESSIA Ortiz Attending Provider Advanced Rnfa Family Provider Primary Care Provider Referring Provider Specialty: Medical Address: [address] [place] [address], [facility] Email: [email or web address] Plan Of Care PT-OP-B Current Condition Start: 11/28/24 10:27 Freq: Status: Active Protocol: Document 11/28/24 09:45 DCW (Rec: 11/29/24 08:50 DCW [id number]) Current Condition History of Current Condition Onset Date Multi-year history Current Complaints Right hip pain, right shoulder pain History of Current Condition Pt is a 79 year old female presenting to skilled therapy with a several year history of right hip and shoulder pain. Pt was seen at this facility for these same complaints in January of last year, however after 2-3 visits, began to experience positional vertigo, and pt was discharged in order to get a new referral for vestibular therapy. Pt was treated for BPPV, and now returns for her hip and shoulder. Pt reports things haven't really changed, although her right shoulder is worse than it had been, and she is having increased lateral hip pain, instead of posterior pain like it was previously. Especially painful in both areas when lying on her right side at night, and then even worse when she goes to roll off her side. Notes she can hear the shoulder ratcheting when she writes. Not especially limited with activity, but shoulder is sore when lifting overhead. PT-OP-T Assessment and Plan Start: 11/28/24 10:27 Freq: Status: Active Protocol: Document 11/28/24 09:45 DCW (Rec: 11/29/24 12:46 DCW [id number]) Physical Therapy Assessment Rehab Potential Rehabilitation Potential Good Evaluation Complexity Number of Personal Factors/Comorbidities 3 or More Number of Body Systems Impaired 4 or More Clinical Presentation at Evaluation Evolving Impairments Impairments Activity Tolerance,Functional Activities,Functional Mobility ,Pain,Tone Goals Three Impairment Pt experiences shoulder pain and ratcheting when writing Detention Goal (LTG) Pt to report ability to write for 15 minutes without increased stiffness or pain in her right shoulder in order to demonstrate improved joint stability LTG Duration 01/29/25 Two Impairment Pt has difficulty sleeping due to disturbances from pain Meat Cutter Goal (LTG) Pt to report ability to sleep on her right side for a full night without increased pain in her hip or shoulder. LTG Duration 01/29/25 One Impairment Pt does not have an appropriate home exercise program Short Term Goal (STG) Pt to be independent and compliant with an appropriate HEP STG Duration 12/29/24 Assessment Summary Assessment Pt presents with signs and symptoms consistent with referring diagnosis. Pt exhibiting worsening right posterior and lateral hip pain , appears to be involvement of her piriformis and ITB, as well as point-specific tenderness along GT may indicate potential GT bursitis . Shoulder is a little more difficult to narrow down, pt indicating pain with most r/c testing, with positive results from Lift Off, Belly Press, Painful Arc, Passive ER, and Martinez-Ricardo tests. Most likely either subacromial impingement or supraspinatus involvement. Does not, however , exhibit any ROM limitations or rotator cuff weakness. Pt should benefit from skilled therapeutic intervention focusing on improving joint stability, flexibility, strengthening, STM, pain/ inflammation control, and education for sleep positioning. Physical Therapy Plan Frequency and Duration Frequency of Treatment 2x/Week Plan of Care Start Date 11/28/24 Plan of Care End Date 01/28/25 Therapeutic Interventions Therapeutic Interventions Home Exercise Program,Joint Mobilizations,Manual Therapy, Neuromuscular Re-education, Patient/Caregiver Education, Self-Care/Home Management,Soft Tissue Mobilization, Therapeutic Activities, Therapeutic Exercises Modalities Cold Pack/Ice Massage,Hot Packs,Iontophoresis Other Therapeutic Interventions Iontophoresis - Dexamethasone 10 mg/mL Next Visit Focus/Plan Next Note Type Treatment Note Next Visit Plan STM, stretching, strengthening of shoulder complex Plan of Care Dates Plan of Care Start Date 11/28/24 Plan of Care End Date 01/28/25 Electronically Signed by: Bi Baeza, PT 11/29/24 6045 If you are in agreement with this Plan of Care, please return a signed and dated copy. I have reviewed this Plan of Care and certify that the skilled therapy services above are required to meet the patient?s needs. Physician Signature Date Printed Name and Credentials Clinical Instructor Signature Printed Name and Credentials
--- NOTE | 2024-11-28 12:47 | PT.OIE ---
Current Diagnoses Other chronic pain (11/28/24) Pain in right shoulder (11/28/24) Pain in right hip (11/28/24) Pain in left hip (11/28/24) Radiculopathy, lumbar region (11/28/24) Other low back pain (11/28/24) Past Medical History (Last Reviewed 10/31/24 @ 14:11 by ALESSIA Ortiz) Allergies Chronic diarrhea Dyslipidemia Essential hypertension Hearing loss (~2016) Insomnia Osteopenia Other low back pain PMB (postmenopausal bleeding) Past Surgical History (Last Reviewed 10/31/24 @ 14:11 by ALESSIA Ortiz) Anesthesia History of third molar tooth extraction (~1964) Status post breast lumpectomy (~2014) Status post colonoscopy (~2012) Status post dilation and curettage (~2012) Visit Care Team Role Provider Type ALESSIA Ortiz Attending Provider Advanced [employer] Attendant Family Provider Primary Care Provider Referring Provider Specialty: Medical Address: [address] [place] [address] Email: [email or web address] Physical Therapy Initial Evaluation PT-OP-A Visit Information Start: 11/28/24 10:27 Freq: Status: Active Protocol: Document 11/28/24 09:45 DCW (Rec: 11/28/24 10:30 DCW [id number]) Out-Patient Physical Therapy Visit Information Visit Information Visit Type Initial Evaluation Visit Start Time 09:45 Visit Stop Time 10:25 Visit Number 1 Number of PIPELINE WELDER Visits 0 Evaluation Information Evaluation Date 11/28/24 PT-OP-B Current Condition Start: 11/28/24 10:27 Freq: Status: Active Protocol: Document 11/28/24 09:45 DCW (Rec: 11/29/24 08:50 DCW [id number]) Current Condition History of Current Condition Onset Date Multi-year history Current Complaints Right hip pain, right shoulder pain History of Current Condition Pt is a 79 year old female presenting to skilled therapy with a several year history of right hip and shoulder pain. Pt was seen at this facility for these same complaints in January of last year, however after 2-3 visits, began to experience positional vertigo, and pt was discharged in order to get a new referral for vestibular therapy. Pt was treated for BPPV, and now returns for her hip and shoulder. Pt reports things haven't really changed, although her right shoulder is worse than it had been, and she is having increased lateral hip pain, instead of posterior pain like it was previously. Especially painful in both areas when lying on her right side at night, and then even worse when she goes to roll off her side. Notes she can hear the shoulder ratcheting when she writes. Not especially limited with activity, but shoulder is sore when lifting overhead. PT-OP-C Subjective Start: 11/28/24 10:27 Freq: Status: Active Protocol: Document 11/28/24 09:45 DCW (Rec: 11/29/24 08:50 DCW [id number]) OP-PT Subjective Patient Comments Patient Comments There haven't really been any changes. But my vertigo hasn' t returned, so that's nice. Patient Reported Progress Worse Patient Questionnaires Oswestry Low Back Index Oswestry Score 9/50 = 18% Quick Dash- Upper Extremity Quick Dash UE Score 18.18% Quick Dash UE Impairment 1 to 19% Impaired (Score 1-19) PT-OP-F Manual Assessment Start: 11/28/24 10:27 Freq: Status: Active Protocol: Document 11/28/24 09:45 DCW (Rec: 11/29/24 08:59 DCW [id number]) Manual Assessments Soft Tissue Assessment Soft Tissue Mobility Assessment Tenderness to palpation 3/4: Wincing and withdraw along right supraspinatus, infraspinatus, TFL/ITB Joint Mobility Assessment Joint Mobility Assessment Good passive mobility of both right hip and right shoulder PT-OP-K Range of Motion Start: 11/28/24 10:27 Freq: Status: Active Protocol: Document 11/28/24 09:45 DCW (Rec: 11/29/24 08:59 DCW [id number]) Shoulder Goniometric Range of Motion Shoulder Right Active Testing Position Sitting Flexion 180 Abduction 180 External Rotation at 0 degrees Abduction 60 Comments Full ROM, but increased pain overhead Left Active Shoulder ROM WFL Yes Testing Position Sitting Flexion 180 Abduction 180 External Rotation at 0 degrees Abduction 60 PT-OP-L Special Tests Start: 11/28/24 10:27 Freq: Status: Active Protocol: Document 11/28/24 09:45 DCW (Rec: 11/29/24 08:59 DCW [id number]) Special Tests Lumbar Spine Special Tests Straight Leg Raise Test Results Negative Compression Test Results Negative A-P Shearing Test Results Negative Shoulder Special Tests Speed's Biceps Test Results Negative Passive ER Rotator Cuff Test Results Positive R Painful Arc Test Results Positive R Lift-Off Rotator Cuff Test Results Positive R Martinez Ricardo Impingement Test Results Positive R Grind Labrum Test Results Negative Drop Arm Rotator Cuff Test Results Negative Belly Press Test Results Positive R Hip Special Tests Scour Test Test Results Negative Piriformis Test Results Positive R KEV Test Results Negative Knee Special Tests Navi's Test Test Results Positive R PT-OP-M Strength Start: 11/28/24 10:27 Freq: Status: Active Protocol: Document 11/28/24 09:45 DCW (Rec: 11/29/24 08:59 DCW [id number]) Shoulder Strength Shoulder Manual Muscle Testing Right Flexion 4+ Good+ Abduction (C5) 4+ Good+ External Rotation 5 Normal Internal Rotation 5 Normal Left Flexion 5 Normal Abduction (C5) 5 Normal External Rotation 5 Normal Internal Rotation 5 Normal PT-OP-Q Treatments Start: 11/28/24 10:27 Freq: Status: Active Protocol: Document 11/28/24 09:45 DCW (Rec: 11/28/24 10:30 DCW [id number]) Therapeutic Exercises Supine Exercises Piriformis Supine Exercise Name Piriformis stretch - Figure-4 Side right ITB Stretch Supine Exercise Name ITB Stretch Side right Sitting Exercises Upper Trap Sitting Exercise Name UT stretch Side right PT-OP-T Assessment and Plan Start: 11/28/24 10:27 Freq: Status: Active Protocol: Document 11/28/24 09:45 DCW (Rec: 11/29/24 12:46 DCW [id number]) Physical Therapy Assessment Rehab Potential Rehabilitation Potential Good Evaluation Complexity Number of Personal Factors/Comorbidities 3 or More Number of Body Systems Impaired 4 or More Clinical Presentation at Evaluation Evolving Impairments Impairments Activity Tolerance,Functional Activities,Functional Mobility ,Pain,Tone Goals Three Impairment Pt experiences shoulder pain and ratcheting when writing Group Home Goal (LTG) Pt to report ability to write for 15 minutes without increased stiffness or pain in her right shoulder in order to demonstrate improved joint stability LTG Duration 01/29/25 Two Impairment Pt has difficulty sleeping due to disturbances from pain Group Home Goal (LTG) Pt to report ability to sleep on her right side for a full night without increased pain in her hip or shoulder. LTG Duration 01/29/25 One Impairment Pt does not have an appropriate home exercise program Short Term Goal (STG) Pt to be independent and compliant with an appropriate HEP STG Duration 12/29/24 Assessment Summary Assessment Pt presents with signs and symptoms consistent with referring diagnosis. Pt exhibiting worsening right posterior and lateral hip pain , appears to be involvement of her piriformis and ITB, as well as point-specific tenderness along GT may indicate potential GT bursitis . Shoulder is a little more difficult to narrow down, pt indicating pain with most r/c testing, with positive results from Lift Off, Belly Press, Painful Arc, Passive ER, and Martinez-Ricardo tests. Most likely either subacromial impingement or supraspinatus involvement. Does not, however , exhibit any ROM limitations or rotator cuff weakness. Pt should benefit from skilled therapeutic intervention focusing on improving joint stability, flexibility, strengthening, STM, pain/ inflammation control, and education for sleep positioning. Physical Therapy Plan Frequency and Duration Frequency of Treatment 2x/Week Plan of Care Start Date 11/28/24 Plan of Care End Date 01/28/25 Therapeutic Interventions Therapeutic Interventions Home Exercise Program,Joint Mobilizations,Manual Therapy, Neuromuscular Re-education, Patient/Caregiver Education, Self-Care/Home Management,Soft Tissue Mobilization, Therapeutic Activities, Therapeutic Exercises Modalities Cold Pack/Ice Massage,Hot Packs,Iontophoresis Other Therapeutic Interventions Iontophoresis - Dexamethasone 10 mg/mL Next Visit Focus/Plan Next Note Type Treatment Note Next Visit Plan STM, stretching, strengthening of shoulder complex
--- NOTE | 2024-12-03 10:30 | PT.OTN ---
Current Diagnoses Other chronic pain (12/03/24) Pain in right shoulder (12/03/24) Pain in right hip (12/03/24) Pain in left hip (12/03/24) Radiculopathy, lumbar region (12/03/24) Other low back pain (12/03/24) Physical Therapy Treatment Note PT-OP-A Visit Information Start: 11/28/24 10:27 Freq: Status: Active Protocol: Document 12/03/24 09:45 DCW (Rec: 12/03/24 10:30 DCW [id number]) Out-Patient Physical Therapy Visit Information Visit Information Visit Type Treatment Note Visit Start Time 09:45 Visit Stop Time 10:30 Visit Number 2 Number of SPRAY PAINTER Visits 0 Evaluation Information Evaluation Date 11/28/24 PT-OP-B Current Condition Start: 11/28/24 10:27 Freq: Status: Active Protocol: Document 11/28/24 09:45 DCW (Rec: 11/29/24 08:50 DCW [id number]) Current Condition History of Current Condition Onset Date Multi-year history Current Complaints Right hip pain, right shoulder pain History of Current Condition Pt is a 79 year old female presenting to skilled therapy with a several year history of right hip and shoulder pain. Pt was seen at this facility for these same complaints in January of last year, however after 2-3 visits, began to experience positional vertigo, and pt was discharged in order to get a new referral for vestibular therapy. Pt was treated for BPPV, and now returns for her hip and shoulder. Pt reports things haven't really changed, although her right shoulder is worse than it had been, and she is having increased lateral hip pain, instead of posterior pain like it was previously. Especially painful in both areas when lying on her right side at night, and then even worse when she goes to roll off her side. Notes she can hear the shoulder ratcheting when she writes. Not especially limited with activity, but shoulder is sore when lifting overhead. PT-OP-C Subjective Start: 11/28/24 10:27 Freq: Status: Active Protocol: Document 12/03/24 09:45 DCW (Rec: 12/03/24 10:30 DCW [id number]) OP-PT Subjective Patient Comments Patient Comments About the same. PT-OP-F Manual Assessment Start: 11/28/24 10:27 Freq: Status: Active Protocol: Document 11/28/24 09:45 DCW (Rec: 11/29/24 08:59 DCW [id number]) Manual Assessments Soft Tissue Assessment Soft Tissue Mobility Assessment Tenderness to palpation 3/4: Wincing and withdraw along right supraspinatus, infraspinatus, TFL/ITB Joint Mobility Assessment Joint Mobility Assessment Good passive mobility of both right hip and right shoulder PT-OP-K Range of Motion Start: 11/28/24 10:27 Freq: Status: Active Protocol: Document 11/28/24 09:45 DCW (Rec: 11/29/24 08:59 DCW [id number]) Shoulder Goniometric Range of Motion Shoulder Right Active Testing Position Sitting Flexion 180 Abduction 180 External Rotation at 0 degrees Abduction 60 Comments Full ROM, but increased pain overhead Left Active Shoulder ROM WFL Yes Testing Position Sitting Flexion 180 Abduction 180 External Rotation at 0 degrees Abduction 60 PT-OP-L Special Tests Start: 11/28/24 10:27 Freq: Status: Active Protocol: Document 11/28/24 09:45 DCW (Rec: 11/29/24 08:59 DCW [id number]) Special Tests Lumbar Spine Special Tests Straight Leg Raise Test Results Negative Compression Test Results Negative A-P Shearing Test Results Negative Shoulder Special Tests Speed's Biceps Test Results Negative Passive ER Rotator Cuff Test Results Positive R Painful Arc Test Results Positive R Lift-Off Rotator Cuff Test Results Positive R Martinez Ricardo Impingement Test Results Positive R Grind Labrum Test Results Negative Drop Arm Rotator Cuff Test Results Negative Belly Press Test Results Positive R Hip Special Tests Scour Test Test Results Negative Piriformis Test Results Positive R KEV Test Results Negative Knee Special Tests Navi's Test Test Results Positive R PT-OP-M Strength Start: 11/28/24 10:27 Freq: Status: Active Protocol: Document 11/28/24 09:45 DCW (Rec: 11/29/24 08:59 DCW [id number]) Shoulder Strength Shoulder Manual Muscle Testing Right Flexion 4+ Good+ Abduction (C5) 4+ Good+ External Rotation 5 Normal Internal Rotation 5 Normal Left Flexion 5 Normal Abduction (C5) 5 Normal External Rotation 5 Normal Internal Rotation 5 Normal PT-OP-Q Treatments Start: 11/28/24 10:27 Freq: Status: Active Protocol: Document 12/03/24 09:45 DCW (Rec: 12/03/24 10:30 DCW [id number]) Therapeutic Exercises Supine Exercises Serratus Punch Supine Exercise Name Serratus Punch Side bilateral Single KtC Supine Exercise Name Single KtC Side bilateral Piriformis Supine Exercise Name Piriformis stretch - Figure-4, Knee to opposite shoulder Side right ITB Stretch Supine Exercise Name ITB Stretch Side right Standing Exercises Pec Stretch Standing Exercise Name Pec Stretch - Door Stretch Side bilateral Shoulder Extension Standing Exercise Name Shoulder Extension Side bilateral Resistance Green Rows Standing Exercise Name Rows Side bilateral Resistance Green Other Exercises Resisted Ambulation Other Exercise Name Resisted side-stepping Resistance Green loop Manual Therapy Treatment Consent Patient gave verbal consent for manual Yes treatment Soft Tissue Mobilization Scapular Body Location R Parascapulars Mobilization Type Strumming,Sustained Pressure Intensity/Depth Moderate Body Position Supine PT-OP-T Assessment and Plan Start: 11/28/24 10:27 Freq: Status: Active Protocol: Document 12/03/24 09:45 DCW (Rec: 12/03/24 10:30 DCW [id number]) Physical Therapy Assessment Impairments Impairments Activity Tolerance,Functional Activities,Functional Mobility ,Pain,Tone Goals Three Impairment Pt experiences shoulder pain and ratcheting when writing Care Home Goal (LTG) Pt to report ability to write for 15 minutes without increased stiffness or pain in her right shoulder in order to demonstrate improved joint stability LTG Duration 01/29/25 Two Impairment Pt has difficulty sleeping due to disturbances from pain Care Home Goal (LTG) Pt to report ability to sleep on her right side for a full night without increased pain in her hip or shoulder. LTG Duration 01/29/25 One Impairment Pt does not have an appropriate home exercise program Short Term Goal (STG) Pt to be independent and compliant with an appropriate HEP STG Duration 12/29/24 Assessment Summary Assessment Pt tolerated exercise well, agreeable to implement new exercises into HEP. Discussed trial of Ionto, pt unsure at this time, will consider it. Continue to focus on strengthening, joint mobility, and STM to right shoulder and right hip. Physical Therapy Plan Frequency and Duration Frequency of Treatment 2x/Week Plan of Care Start Date 11/28/24 Plan of Care End Date 01/28/25 Therapeutic Interventions Therapeutic Interventions Home Exercise Program,Joint Mobilizations,Manual Therapy, Neuromuscular Re-education, Patient/Caregiver Education, Self-Care/Home Management,Soft Tissue Mobilization, Therapeutic Activities, Therapeutic Exercises Modalities Cold Pack/Ice Massage,Hot Packs,Iontophoresis Other Therapeutic Interventions Iontophoresis - Dexamethasone 10 mg/mL Next Visit Focus/Plan Next Note Type Treatment Note Next Visit Plan STM, stretching, strengthening of shoulder complex
--- NOTE | 2024-12-06 09:00 | PT.OTN ---
Current Diagnoses Other chronic pain (12/06/24) Pain in right shoulder (12/06/24) Pain in right hip (12/06/24) Pain in left hip (12/06/24) Radiculopathy, lumbar region (12/06/24) Other low back pain (12/06/24) Physical Therapy Treatment Note PT-OP-A Visit Information Start: 11/28/24 10:27 Freq: Status: Active Protocol: Document 12/06/24 08:17 PG (Rec: 12/06/24 09:45 PG [id number]) Out-Patient Physical Therapy Visit Information Visit Information Visit Type Treatment Note Visit Note Darby ORELLANA led tx with permission of pt and direct supervision from Annmarie QUEEN. Visit Start Time 08:17 Visit Stop Time 09:00 Visit Number 3 Number of SPRING INTERNSHIP Visits 1 Evaluation Information Evaluation Date 11/28/24 PT-OP-B Current Condition Start: 11/28/24 10:27 Freq: Status: Active Protocol: Document 11/28/24 09:45 DCW (Rec: 11/29/24 08:50 DCW [id number]) Current Condition History of Current Condition Onset Date Multi-year history Current Complaints Right hip pain, right shoulder pain History of Current Condition Pt is a 79 year old female presenting to skilled therapy with a several year history of right hip and shoulder pain. Pt was seen at this facility for these same complaints in January of last year, however after 2-3 visits, began to experience positional vertigo, and pt was discharged in order to get a new referral for vestibular therapy. Pt was treated for BPPV, and now returns for her hip and shoulder. Pt reports things haven't really changed, although her right shoulder is worse than it had been, and she is having increased lateral hip pain, instead of posterior pain like it was previously. Especially painful in both areas when lying on her right side at night, and then even worse when she goes to roll off her side. Notes she can hear the shoulder ratcheting when she writes. Not especially limited with activity, but shoulder is sore when lifting overhead. PT-OP-C Subjective Start: 11/28/24 10:27 Freq: Status: Active Protocol: Document 12/06/24 08:17 PG (Rec: 12/06/24 09:45 PG [id number]) OP-PT Subjective Patient Comments Patient Comments Pt states shoulder has felt worse to the point where she stopped completing her HEP. Hips and low back have felt the same, no change. Patient Reported Progress Worse PT-OP-F Manual Assessment Start: 11/28/24 10:27 Freq: Status: Active Protocol: Document 11/28/24 09:45 DCW (Rec: 11/29/24 08:59 DCW [id number]) Manual Assessments Soft Tissue Assessment Soft Tissue Mobility Assessment Tenderness to palpation 3/4: Wincing and withdraw along right supraspinatus, infraspinatus, TFL/ITB Joint Mobility Assessment Joint Mobility Assessment Good passive mobility of both right hip and right shoulder PT-OP-K Range of Motion Start: 11/28/24 10:27 Freq: Status: Active Protocol: Document 11/28/24 09:45 DCW (Rec: 11/29/24 08:59 DCW [id number]) Shoulder Goniometric Range of Motion Shoulder Right Active Testing Position Sitting Flexion 180 Abduction 180 External Rotation at 0 degrees Abduction 60 Comments Full ROM, but increased pain overhead Left Active Shoulder ROM WFL Yes Testing Position Sitting Flexion 180 Abduction 180 External Rotation at 0 degrees Abduction 60 PT-OP-L Special Tests Start: 11/28/24 10:27 Freq: Status: Active Protocol: Document 11/28/24 09:45 DCW (Rec: 11/29/24 08:59 DCW [id number]) Special Tests Lumbar Spine Special Tests Straight Leg Raise Test Results Negative Compression Test Results Negative A-P Shearing Test Results Negative Shoulder Special Tests Speed's Biceps Test Results Negative Passive ER Rotator Cuff Test Results Positive R Painful Arc Test Results Positive R Lift-Off Rotator Cuff Test Results Positive R Martinez Ricardo Impingement Test Results Positive R Grind Labrum Test Results Negative Drop Arm Rotator Cuff Test Results Negative Belly Press Test Results Positive R Hip Special Tests Scour Test Test Results Negative Piriformis Test Results Positive R KEV Test Results Negative Knee Special Tests Navi's Test Test Results Positive R PT-OP-M Strength Start: 11/28/24 10:27 Freq: Status: Active Protocol: Document 11/28/24 09:45 DCW (Rec: 11/29/24 08:59 DCW [id number]) Shoulder Strength Shoulder Manual Muscle Testing Right Flexion 4+ Good+ Abduction (C5) 4+ Good+ External Rotation 5 Normal Internal Rotation 5 Normal Left Flexion 5 Normal Abduction (C5) 5 Normal External Rotation 5 Normal Internal Rotation 5 Normal PT-OP-Q Treatments Start: 11/28/24 10:27 Freq: Status: Active Protocol: Document 12/06/24 08:17 PG (Rec: 12/06/24 09:45 PG [id number]) Therapeutic Exercises Supine Exercises Serratus Punch Supine Exercise Name Serratus Punch, reviewed Side bilateral Reps/Minutes x10 Comments v/c's to keep elbows straight. Neck/Shldr discomfort 09/23 Single KtC Supine Exercise Name Verbally reveiwed Piriformis Supine Exercise Name Verbally reviewed Sitting Exercises Levator Scap Sitting Exercise Name LS stretch - pt self HEP stretch Side right Reps/Minutes 30 seconds Comments v/c's: head straight, head turn with downwrd posit Upper Trap Sitting Exercise Name UT stretch Side right Reps/Minutes 30 seconds Comments v/c's: head striaght,ear to shldr, tips for ovrpress. Not feeling strch. Standing Exercises Shoulder Extension Standing Exercise Name Shoulder Extension Side bilateral Resistance Green (ione on wall) Reps/Minutes x10 Comments v/c's: chin tuck, scap retract and control eccentrically. Rows Standing Exercise Name Rows Side bilateral Resistance Green (ione on wall) Reps/Minutes x10 Comments v/c's: chin tucks, elbows twrd floor to facilitate low trap, scap retrct Manual Therapy Treatment Consent Patient gave verbal consent for manual Yes treatment Soft Tissue Mobilization Scapular Body Location R suprispinatus, LS, rhomboids Mobilization Type Rolling,Sustained Pressure Intensity/Depth Moderate Body Position L sidelying Joint Mobilizations Scapular thoracic Direction elevation/depression and retraction/protraction Grade II Body Position Sidelying Comments [place] clicking or ratcheting in posterior shoulder joint. Decreased with distraction during glide. Self-Care/Home Management Treatment Activities Self-Care/Home Management Activities Instructed pt in using Therapy cane for self manual STM and MVM (head nods/turns) on LS, and scapular muscles. Good feedback. PT-OP-T Assessment and Plan Start: 11/28/24 10:27 Freq: Status: Active Protocol: Document 12/06/24 08:17 PG (Rec: 12/06/24 09:45 PG [id number]) Physical Therapy Assessment Impairments Impairments Activity Tolerance,Functional Activities,Functional Mobility ,Pain,Tone Goals Three Impairment Pt experiences shoulder pain and ratcheting when writing [facility] Goal (LTG) Pt to report ability to write for 15 minutes without increased stiffness or pain in her right shoulder in order to demonstrate improved joint stability LTG Duration 01/29/25 Two Impairment Pt has difficulty sleeping due to disturbances from pain [facility] Goal (LTG) Pt to report ability to sleep on her right side for a full night without increased pain in her hip or shoulder. LTG Duration 01/29/25 One Impairment Pt does not have an appropriate home exercise program Short Term Goal (STG) Pt to be independent and compliant with an appropriate HEP STG Duration 12/29/24 Assessment Summary Assessment Pt tolerated review of scapular stabilization exercises well during tx. Required minimal v/c's to keep chin tucked and engage rhomboids, low trap and decrease UT recruitment. Focused on technique of HEP shoulder ex's for strengthening and STM to R shoulder and c/s. Physical Therapy Plan Frequency and Duration Frequency of Treatment 2x/Week Plan of Care Start Date 11/28/24 Plan of Care End Date 01/28/25 Therapeutic Interventions Therapeutic Interventions Home Exercise Program,Joint Mobilizations,Manual Therapy, Neuromuscular Re-education, Patient/Caregiver Education, Self-Care/Home Management,Soft Tissue Mobilization, Therapeutic Activities, Therapeutic Exercises Modalities Cold Pack/Ice Massage,Hot Packs,Iontophoresis Other Therapeutic Interventions Iontophoresis - Dexamethasone 10 mg/mL Next Visit Focus/Plan Next Note Type Treatment Note Next Visit Plan Next tx: How did pt respond to manual therapy last tx? Recheck HEP for shoulder tolerance, add ER exercise, TB walkouts? STM, stretching, strengthening of shoulder complex
--- NOTE | 2024-12-09 12:15 | PT.OTN ---
Current Diagnoses Other chronic pain (12/09/24) Pain in right shoulder (12/09/24) Pain in right hip (12/09/24) Pain in left hip (12/09/24) Radiculopathy, lumbar region (12/09/24) Other low back pain (12/09/24) Physical Therapy Treatment Note PT-OP-A Visit Information Start: 11/28/24 10:27 Freq: Status: Active Protocol: Document 12/09/24 11:35 SP (Rec: 12/09/24 12:24 SP [id number]) Out-Patient Physical Therapy Visit Information Visit Information Visit Type Treatment Note Visit Note Darby ORELLANA observed tx with pt permission. Visit Start Time 11:35 Visit Stop Time 12:15 Visit Number 4 Number of PITCH GATHERER Visits 2 Evaluation Information Evaluation Date 11/28/24 PT-OP-B Current Condition Start: 11/28/24 10:27 Freq: Status: Active Protocol: Document 11/28/24 09:45 DCW (Rec: 11/29/24 08:50 DCW [id number]) Current Condition History of Current Condition Onset Date Multi-year history Current Complaints Right hip pain, right shoulder pain History of Current Condition Pt is a 79 year old female presenting to skilled therapy with a several year history of right hip and shoulder pain. Pt was seen at this facility for these same complaints in January of last year, however after 2-3 visits, began to experience positional vertigo, and pt was discharged in order to get a new referral for vestibular therapy. Pt was treated for BPPV, and now returns for her hip and shoulder. Pt reports things haven't really changed, although her right shoulder is worse than it had been, and she is having increased lateral hip pain, instead of posterior pain like it was previously. Especially painful in both areas when lying on her right side at night, and then even worse when she goes to roll off her side. Notes she can hear the shoulder ratcheting when she writes. Not especially limited with activity, but shoulder is sore when lifting overhead. PT-OP-C Subjective Start: 11/28/24 10:27 Freq: Status: Active Protocol: Document 12/09/24 11:35 SP (Rec: 12/09/24 12:24 SP [id number]) OP-PT Subjective Patient Comments Patient Comments Pt reports her hip feels better and able to sleep 2 nights in row, is performing stretches more diligent. She is performing her resisted ex but still gets R anterior shld irritation. PT-OP-F Manual Assessment Start: 11/28/24 10:27 Freq: Status: Active Protocol: Document 11/28/24 09:45 DCW (Rec: 11/29/24 08:59 DCW [id number]) Manual Assessments Soft Tissue Assessment Soft Tissue Mobility Assessment Tenderness to palpation 3/4: Wincing and withdraw along right supraspinatus, infraspinatus, TFL/ITB Joint Mobility Assessment Joint Mobility Assessment Good passive mobility of both right hip and right shoulder PT-OP-K Range of Motion Start: 11/28/24 10:27 Freq: Status: Active Protocol: Document 11/28/24 09:45 DCW (Rec: 11/29/24 08:59 DCW [id number]) Shoulder Goniometric Range of Motion Shoulder Right Active Testing Position Sitting Flexion 180 Abduction 180 External Rotation at 0 degrees Abduction 60 Comments Full ROM, but increased pain overhead Left Active Shoulder ROM WFL Yes Testing Position Sitting Flexion 180 Abduction 180 External Rotation at 0 degrees Abduction 60 PT-OP-L Special Tests Start: 11/28/24 10:27 Freq: Status: Active Protocol: Document 11/28/24 09:45 DCW (Rec: 11/29/24 08:59 DCW [id number]) Special Tests Lumbar Spine Special Tests Straight Leg Raise Test Results Negative Compression Test Results Negative A-P Shearing Test Results Negative Shoulder Special Tests Speed's Biceps Test Results Negative Passive ER Rotator Cuff Test Results Positive R Painful Arc Test Results Positive R Lift-Off Rotator Cuff Test Results Positive R Martinez Ricardo Impingement Test Results Positive R Grind Labrum Test Results Negative Drop Arm Rotator Cuff Test Results Negative Belly Press Test Results Positive R Hip Special Tests Scour Test Test Results Negative Piriformis Test Results Positive R KEV Test Results Negative Knee Special Tests Navi's Test Test Results Positive R PT-OP-M Strength Start: 11/28/24 10:27 Freq: Status: Active Protocol: Document 11/28/24 09:45 DCW (Rec: 11/29/24 08:59 DCW [id number]) Shoulder Strength Shoulder Manual Muscle Testing Right Flexion 4+ Good+ Abduction (C5) 4+ Good+ External Rotation 5 Normal Internal Rotation 5 Normal Left Flexion 5 Normal Abduction (C5) 5 Normal External Rotation 5 Normal Internal Rotation 5 Normal PT-OP-Q Treatments Start: 11/28/24 10:27 Freq: Status: Active Protocol: Document 12/09/24 11:35 SP (Rec: 12/09/24 12:24 SP [id number]) Therapeutic Exercises Prone Exercises I, T, Ys Prone Exercise Name added to HEP with HO Side right Resistance AROM Equipment Used head on L forearm side bed Reps/Minutes 10 reps each, then I hold 5 sec x5 reps Comments occ tactile cue scap retraction, pnfree with range reported Sitting Exercises Shoulder ER Sitting Exercise Name trialed in PT Scap Retraction with slight (if ok add to HEP next) Er Resistance Andrews, ER Reps/Minutes 8 reps total (minimize/ diminish crepitus) Comments max verbal and tactile cues for scap retration/humeral inf glide reset Manual Therapy Treatment Consent Patient gave verbal consent for manual Yes treatment Soft Tissue Mobilization Scapular Body Location R supraspinatus, LS, rhomboids , deltoid, bicep Mobilization Type Rolling,Sustained Pressure Intensity/Depth Moderate Body Position L sidelying Joint Mobilizations R GH Jt Joint R Direction posterior Comments hooklying - good tolerance Scapular thoracic Direction elevation/depression and retraction/protraction Grade II Body Position Sidelying Comments [place] ratcheting in posterior shoulder joint. Decreased with distraction during glide through range. PT-OP-T Assessment and Plan Start: 11/28/24 10:27 Freq: Status: Active Protocol: Document 12/09/24 11:35 SP (Rec: 12/09/24 12:24 SP [id number]) Physical Therapy Assessment Goals Three Impairment Pt experiences shoulder pain and ratcheting when writing Yard Caller Goal (LTG) Pt to report ability to write for 15 minutes without increased stiffness or pain in her right shoulder in order to demonstrate improved joint stability LTG Duration 01/29/25 Two Impairment Pt has difficulty sleeping due to disturbances from pain Yard Caller Goal (LTG) Pt to report ability to sleep on her right side for a full night without increased pain in her hip or shoulder. LTG Duration 01/29/25 One Impairment Pt does not have an appropriate home exercise program Short Term Goal (STG) Pt to be independent and compliant with an appropriate HEP STG Duration 12/29/24 Assessment Summary Assessment Pt continues to have lateral R shld pain with activities, tactile and verbal cues for scap retraction and humeral inferior glide to decreased anterior and lateral pain, improved with added prone ext/ HABD/ Scaption today no pain. Trialed seated resisted scap re traction and ER, challenged maintain positioning, will revisit next tx for strengthening progression. Physical Therapy Plan Frequency and Duration Frequency of Treatment 2x/Week Plan of Care Start Date 11/28/24 Plan of Care End Date 01/28/25 Therapeutic Interventions Therapeutic Interventions Home Exercise Program,Joint Mobilizations,Manual Therapy, Neuromuscular Re-education, Patient/Caregiver Education, Self-Care/Home Management,Soft Tissue Mobilization, Therapeutic Activities, Therapeutic Exercises Modalities Cold Pack/Ice Massage,Hot Packs,Iontophoresis Other Therapeutic Interventions Iontophoresis - Dexamethasone 10 mg/mL Next Visit Focus/Plan Next Note Type Treatment Note Next Visit Plan Next tx: REcheck added prone AROM T, I, Y, if elvira and able elvira add ER exercise vs TB walkouts? STM, stretching, strengthening of shoulder complex
--- NOTE | 2024-12-11 10:36 | PT.OTN ---
Current Diagnoses Other chronic pain (12/11/24) Pain in right shoulder (12/11/24) Pain in right hip (12/11/24) Pain in left hip (12/11/24) Radiculopathy, lumbar region (12/11/24) Other low back pain (12/11/24) Physical Therapy Treatment Note PT-OP-A Visit Information Start: 11/28/24 10:27 Freq: Status: Active Protocol: Document 12/11/24 09:45 DCW (Rec: 12/11/24 10:35 DCW [id number]) Out-Patient Physical Therapy Visit Information Visit Information Visit Type Treatment Note Visit Start Time 09:45 Visit Stop Time 10:30 Visit Number 5 Number of FOOD PRODUCTS SALES REPRESENTATIVE Visits 0 Evaluation Information Evaluation Date 11/28/24 PT-OP-B Current Condition Start: 11/28/24 10:27 Freq: Status: Active Protocol: Document 11/28/24 09:45 DCW (Rec: 11/29/24 08:50 DCW [id number]) Current Condition History of Current Condition Onset Date Multi-year history Current Complaints Right hip pain, right shoulder pain History of Current Condition Pt is a 79 year old female presenting to skilled therapy with a several year history of right hip and shoulder pain. Pt was seen at this facility for these same complaints in January of last year, however after 2-3 visits, began to experience positional vertigo, and pt was discharged in order to get a new referral for vestibular therapy. Pt was treated for BPPV, and now returns for her hip and shoulder. Pt reports things haven't really changed, although her right shoulder is worse than it had been, and she is having increased lateral hip pain, instead of posterior pain like it was previously. Especially painful in both areas when lying on her right side at night, and then even worse when she goes to roll off her side. Notes she can hear the shoulder ratcheting when she writes. Not especially limited with activity, but shoulder is sore when lifting overhead. PT-OP-C Subjective Start: 11/28/24 10:27 Freq: Status: Active Protocol: Document 12/11/24 09:45 DCW (Rec: 12/11/24 10:35 DCW [id number]) OP-PT Subjective Patient Comments Patient Comments It's there, but it's manageable. Admits her exercises irritate her shoulder. It's not debilitating, its just more irritated after I do them. PT-OP-F Manual Assessment Start: 11/28/24 10:27 Freq: Status: Active Protocol: Document 11/28/24 09:45 DCW (Rec: 11/29/24 08:59 DCW [id number]) Manual Assessments Soft Tissue Assessment Soft Tissue Mobility Assessment Tenderness to palpation 3/4: Wincing and withdraw along right supraspinatus, infraspinatus, TFL/ITB Joint Mobility Assessment Joint Mobility Assessment Good passive mobility of both right hip and right shoulder PT-OP-K Range of Motion Start: 11/28/24 10:27 Freq: Status: Active Protocol: Document 11/28/24 09:45 DCW (Rec: 11/29/24 08:59 DCW [id number]) Shoulder Goniometric Range of Motion Shoulder Right Active Testing Position Sitting Flexion 180 Abduction 180 External Rotation at 0 degrees Abduction 60 Comments Full ROM, but increased pain overhead Left Active Shoulder ROM WFL Yes Testing Position Sitting Flexion 180 Abduction 180 External Rotation at 0 degrees Abduction 60 PT-OP-L Special Tests Start: 11/28/24 10:27 Freq: Status: Active Protocol: Document 11/28/24 09:45 DCW (Rec: 11/29/24 08:59 DCW [id number]) Special Tests Lumbar Spine Special Tests Straight Leg Raise Test Results Negative Compression Test Results Negative A-P Shearing Test Results Negative Shoulder Special Tests Speed's Biceps Test Results Negative Passive ER Rotator Cuff Test Results Positive R Painful Arc Test Results Positive R Lift-Off Rotator Cuff Test Results Positive R Martinez Riacrdo Impingement Test Results Positive R Grind Labrum Test Results Negative Drop Arm Rotator Cuff Test Results Negative Belly Press Test Results Positive R Hip Special Tests Scour Test Test Results Negative Piriformis Test Results Positive R KEV Test Results Negative Knee Special Tests Navi's Test Test Results Positive R PT-OP-M Strength Start: 11/28/24 10:27 Freq: Status: Active Protocol: Document 11/28/24 09:45 DCW (Rec: 11/29/24 08:59 DCW [id number]) Shoulder Strength Shoulder Manual Muscle Testing Right Flexion 4+ Good+ Abduction (C5) 4+ Good+ External Rotation 5 Normal Internal Rotation 5 Normal Left Flexion 5 Normal Abduction (C5) 5 Normal External Rotation 5 Normal Internal Rotation 5 Normal PT-OP-Q Treatments Start: 11/28/24 10:27 Freq: Status: Active Protocol: Document 12/11/24 09:45 DCW (Rec: 12/11/24 10:35 DCW [id number]) Therapeutic Exercises Prone Exercises I, T, Ys Prone Exercise Name I's, Y's, T's Side right Resistance AROM Comments Removed prone flexion from HEP Sitting Exercises Flexion Sitting Exercise Name Seated shoulder flexion Side right Comments limit UT shrug Standing Exercises 45? ER Standing Exercise Name ER with arm at 45? Side bilateral Resistance Yellow 1.0 kg ball ER/IR Standing Exercise Name ER/IR Side right Resistance Green Comments occasional popping with IR Wall Push-ups Standing Exercise Name Wall push-ups Comments <> and W hand positions Wall Slides Standing Exercise Name Wall slides Side right Comments minimal clicking Rows Standing Exercise Name Rows Side bilateral Resistance Green (cowlitz on wall) Reps/Minutes x10 Manual Therapy Treatment Consent Patient gave verbal consent for manual Yes treatment Soft Tissue Mobilization Scapular Body Location R suprispinatus, LS, rhomboids Mobilization Type Rolling,Sustained Pressure Intensity/Depth Moderate Body Position L sidelying Joint Mobilizations R GH Jt Joint R Direction posterior, inferior Grade III Comments hooklying - good tolerance Scapular thoracic Joint Scapulothoracic Direction Lateral Grade III Body Position Supine PT-OP-T Assessment and Plan Start: 11/28/24 10:27 Freq: Status: Active Protocol: Document 12/11/24 09:45 DCW (Rec: 12/11/24 10:35 DCW [id number]) Physical Therapy Assessment Impairments Impairments Activity Tolerance,Functional Activities,Functional Mobility ,Pain,Tone Goals Three Impairment Pt experiences shoulder pain and ratcheting when writing Senior Living Goal (LTG) Pt to report ability to write for 15 minutes without increased stiffness or pain in her right shoulder in order to demonstrate improved joint stability LTG Duration 01/29/25 Two Impairment Pt has difficulty sleeping due to disturbances from pain Senior Living Goal (LTG) Pt to report ability to sleep on her right side for a full night without increased pain in her hip or shoulder. LTG Duration 01/29/25 One Impairment Pt does not have an appropriate home exercise program Short Term Goal (STG) Pt to be independent and compliant with an appropriate HEP STG Duration 12/29/24 Assessment Summary Assessment Pt feeling pretty good with HEP, would like to attempt independent exercise, notes she will call for follow-up with-in the next month if she would like another appointment . Physical Therapy Plan Frequency and Duration Frequency of Treatment 2x/Week Plan of Care Start Date 11/28/24 Plan of Care End Date 01/28/25 Therapeutic Interventions Therapeutic Interventions Home Exercise Program,Joint Mobilizations,Manual Therapy, Neuromuscular Re-education, Patient/Caregiver Education, Self-Care/Home Management,Soft Tissue Mobilization, Therapeutic Activities, Therapeutic Exercises Modalities Cold Pack/Ice Massage,Hot Packs,Iontophoresis Other Therapeutic Interventions Iontophoresis - Dexamethasone 10 mg/mL Next Visit Focus/Plan Next Note Type Treatment Note Next Visit Plan Next tx: Review HEP STM, stretching, strengthening of shoulder complex
--- NOTE | 2025-05-19 10:23 | PT.OPDS ---
Current Diagnoses Other chronic pain (12/11/24) Pain in right shoulder (12/11/24) Pain in right hip (12/11/24) Pain in left hip (12/11/24) Radiculopathy, lumbar region (12/11/24) Other low back pain (12/11/24) Visit Care Team Role Provider Type ALESSIA Ortiz Attending Provider Advanced Case Hardener Family Provider Primary Care Provider Referring Provider Specialty: Medical Address: [address] [place] [address], [facility] Email: [email or web address] Visit Number Visit Number 5 Discharge Summary PT-OP-A Visit Information Start: 11/28/24 10:27 Freq: Status: Active Protocol: Document 12/11/24 09:45 [facility] (Rec: 12/11/24 10:35 [facility] [id number]) Out-Patient Physical Therapy Visit Information Visit Information Visit Type Treatment Note Visit Start Time 09:45 Visit Stop Time 10:30 Visit Number 5 Number of EXAMINATION PROCTOR Visits 0 Evaluation Information Evaluation Date 11/28/24 PT-OP-B Current Condition Start: 11/28/24 10:27 Freq: Status: Active Protocol: Document 11/28/24 09:45 [facility] (Rec: 11/29/24 08:50 [facility] [id number]) Current Condition History of Current Condition Onset Date Multi-year history Current Complaints Right hip pain, right shoulder pain History of Current Pt is a 79 year old female presenting to skilled Condition therapy with a several year history of right hip and shoulder pain. Pt was seen at this facility for these same complaints in January of last year, however after 2-3 visits, began to experience positional vertigo, and pt was discharged in order to get a new referral for vestibular therapy. Pt was treated for BPPV, and now returns for her hip and shoulder. Pt reports things haven't really changed, although her right shoulder is worse than it had been, and she is having increased lateral hip pain, instead of posterior pain like it was previously. Especially painful in both areas when lying on her right side at night, and then even worse when she goes to roll off her side. Notes she can hear the shoulder ratcheting when she writes. Not especially limited with activity, but shoulder is sore when lifting overhead. PT-OP-C Subjective Start: 11/28/24 10:27 Freq: Status: Active Protocol: Document 12/11/24 09:45 [facility] (Rec: 12/11/24 10:35 [facility] [id number]) OP-PT Subjective Patient Comments Patient Comments It's there, but it's manageable. Admits her exercises irritate her shoulder. It's not debilitating, its just more irritated after I do them. PT-OP-F Manual Assessment Start: 11/28/24 10:27 Freq: Status: Active Protocol: Document 11/28/24 09:45 [facility] (Rec: 11/29/24 08:59 [facility] [id number]) Manual Assessments Soft Tissue Assessment Soft Tissue Mobility Tenderness to palpation 3/4: Wincing and withdraw along Assessment right supraspinatus, infraspinatus, TFL/ITB Joint Mobility Assessment Joint Mobility Good passive mobility of both right hip and right Assessment shoulder PT-OP-K Range of Motion Start: 11/28/24 10:27 Freq: Status: Active Protocol: Document 11/28/24 09:45 [facility] (Rec: 11/29/24 08:59 [facility] [id number]) Shoulder Goniometric Range of Motion Shoulder Right Active Testing Position Sitting Flexion 180 Abduction 180 External Rotation at 60 0 degrees Abduction Comments Full ROM, but increased pain overhead Left Active Shoulder ROM WFL Yes Testing Position Sitting Flexion 180 Abduction 180 External Rotation at 60 0 degrees Abduction PT-OP-L Special Tests Start: 11/28/24 10:27 Freq: Status: Active Protocol: Document 11/28/24 09:45 [facility] (Rec: 11/29/24 08:59 [facility] [id number]) Special Tests Lumbar Spine Special Tests Straight Leg Raise Test Results Negative Compression Test Results Negative A-P Shearing Test Results Negative Shoulder Special Tests Speed's Biceps Test Results Negative Passive ER Rotator Cuff Test Results Positive R Painful Arc Test Results Positive R Lift-Off Rotator Cuff Test Results Positive R Martinez Ricardo Impingement Test Results Positive R Grind Labrum Test Results Negative Drop Arm Rotator Cuff Test Results Negative Belly Press Test Results Positive R Hip Special Tests Scour Test Test Results Negative Piriformis Test Results Positive R KEV Test Results Negative Knee Special Tests Navi's Test Test Results Positive R PT-OP-M Strength Start: 11/28/24 10:27 Freq: Status: Active Protocol: Document 11/28/24 09:45 [facility] (Rec: 11/29/24 08:59 [facility] [id number]) Shoulder Strength Shoulder Manual Muscle Testing Right Flexion 4+ Good+ Abduction (C5) 4+ Good+ External Rotation 5 Normal Internal Rotation 5 Normal Left Flexion 5 Normal Abduction (C5) 5 Normal External Rotation 5 Normal Internal Rotation 5 Normal PT-OP-T Assessment and Plan Start: 11/28/24 10:27 Freq: Status: Active Protocol: Document 05/19/25 10:22 [facility] (Rec: 05/19/25 10:23 [facility] [id number]) Physical Therapy Assessment Assessment Summary Assessment Pt has not been seen in five months, will be discharged from skilled therapy at this time. Pt will need a new referral to return to PT in the future. Physical Therapy Plan Discharge Physical Therapy Discharge Reasons No Longer Attending PT Next Visit Focus/Plan Next Note Type Discharge Summary
== END 2025-05-20 10:49 | disposition home or self-care (01) ==
LOC: PHYS 09:45
PROVIDERS: Family Provider Registered Nurse Diabetes Educator; PCP Registered Nurse Diabetes Educator; Referring Provider Registered Nurse Diabetes Educator; Visit Provider Registered Nurse Diabetes Educator
DX: M54.59 Other low back pain (principal); M54.16 Radiculopathy, lumbar region; G89.29 Other chronic pain; M25.551 Pain in right hip; M25.552 Pain in left hip; M25.511 Pain in right shoulder
CPT/HCPCS: 97110; 97140; 97162

== ENCOUNTER 2025-01-15 10:45 | Outpatient (RCR) | payer MEDICARE, OTHER, SELFPAY ==
--- NOTE | 2025-01-07 16:50 | PT.OIE ---
Current Diagnoses Stress incontinence (female) (male) (01/07/25) Pelvic muscle wasting (01/07/25) Urgency of urination (01/07/25) Past Medical History (Last Reviewed 12/13/24 @ 15:09 by ALESSIA Ortiz) Allergies Chronic diarrhea Dyslipidemia Essential hypertension Hearing loss (~2016) Insomnia Osteopenia Other low back pain PMB (postmenopausal bleeding) Past Surgical History (Last Reviewed 12/13/24 @ 15:09 by ALESSIA Ortiz) Anesthesia History of third molar tooth extraction (~1964) Status post breast lumpectomy (~2014) Status post colonoscopy (~2012) Status post dilation and curettage (~2012) Visit Care Team Role Provider Type ALESSIA Ortiz Attending Provider Advanced Rolled Gold Plater Family Provider Primary Care Provider Referring Provider Specialty: Medical Address: [address] [place] [address] Email: [email or web address] Physical Therapy Initial Evaluation PT-OP-A Visit Information Start: 01/07/25 11:19 Freq: Status: Active Protocol: Document 01/07/25 14:31 [facility] (Rec: 01/07/25 14:56 [facility] [id number]) Out-Patient Physical Therapy Visit Information Visit Information Visit Type Initial Evaluation Visit Start Time 14:31 Visit Stop Time 15:15 Visit Number 1 Evaluation Information Evaluation Date 01/07/25 PT-OP-B Current Condition Start: 01/07/25 11:19 Freq: Status: Active Protocol: Document 01/07/25 14:30 [facility] (Rec: 01/07/25 14:56 [facility] [id number]) Current Condition History of Current Condition Onset Date symptoms began in the past year Current Complaints urinary stress incontinence History of Current Condition leakage can occur with cough and sneeze and sometimes it just happens and can and intermittent once in a while she will experience urinary urgency. pt notes she drinks mostly water and at the most 2 cups per day, wine occasionally, sometimes ice tea. she is regular with her bowel movements no symptoms of pain or pressure. she does have a history of right sided hip a little over a year. HEr hip wakes her up and is painful to sleep on hx of breast cancer [id number] and she took a estrogen baljinder for a year and a half. PT-OP-C Subjective Start: 01/07/25 11:19 Freq: Status: Active Protocol: Document 01/07/25 16:28 [facility] (Rec: 01/07/25 16:41 [facility] [id number]) Patient Questionnaires Pelvic Pain and Urgency/Frequency Patient Symptom Scale Pelvic Pain Score 6 PT-OP-I Pelvic Floor Start: 01/07/25 11:19 Freq: Status: Active Protocol: Document 01/07/25 16:28 [facility] (Rec: 01/07/25 16:41 [facility] [id number]) Pelvic Floor Assessment Urine Pelvic Floor Surgery Yes Urinary Symptoms Urge Sensation Other Urinary Symptoms intermittent symptoms of stress incontinence Leakage Size Medium Leakage Cause Urge Other Leakage Causes light activity, walking or light housework leakage is 1-2 times per week Pelvic Clock Pelvic Clock 6-9 Tightness Contraction Ability Voluntary Contraction Moderate Voluntary Relaxation Moderate Manual Muscle Testing Left 3 Manual Muscle Testing Right 3 Manual Muscle Testing Anterior 3 Manual Muscle Testing Posterior 3 Muscle Endurance (Seconds) 8 Comments Pelvic Floor Comments tightness noted on the right lateral wall of the pelvic floor following a pelvic floor contraction, cues were given to fully relax the pelvic floor PT-OP-Q Treatments Start: 01/07/25 11:19 Freq: Status: Active Protocol: Document 01/07/25 16:28 [facility] (Rec: 01/07/25 16:41 [facility] [id number]) Therapeutic Exercises Supine Exercises pelvic floor long holds Reps/Minutes 10 second hold x 10 second rest x 10 reps 2 times per day Self-Care/Home Management Treatment Education Patient Education Home Exercise Program Other Education Fluid intake was reviewed and Karla was educated on bladder irritants, she was educated on taking her time to void and then double voiding as she reports some complaints of urinary urgency PT-OP-T Assessment and Plan Start: 01/07/25 11:19 Freq: Status: Active Protocol: Document 01/07/25 14:30 [facility] (Rec: 01/07/25 16:41 [facility] [id number]) Physical Therapy Assessment Rehab Potential Rehabilitation Potential Excellent Evaluation Complexity Number of Personal Factors/Comorbidities 1-2 Number of Body Systems Impaired 1-2 Clinical Presentation at Evaluation Stable Impairments Impairments Activity Tolerance,Soft Tissue Mobility,Strength Other Impairments urinary stress incontinence Goals 3 Impairment urinary urgency and nocturia 1 -3 times per night Shelter Goal (LTG) Karla reports a overall reducation of urinary urgency and nocturia is reduced to 1 time per night LTG Duration 8 weeks 2 Impairment pt lacks a home program for pelvic floor endurance training Assistant Center Manager Goal (LTG) Karla is independent with a HEP for pelvic floor endurance training LTG Duration 8 weeks 1 Impairment urinary stress incontinence that is occurring 1-2 times per week Assistant Center Manager Goal (LTG) Karal reports a overall reduction of urinary stress incontinence symptoms LTG Duration 8 weeks Assessment Summary Assessment Karla is a 79 year old female who presents PT today with chief complaints of urinary stress incontinence symptoms that began approximately 1 year ago. She reports her symptoms are very intermittent and she is not sure why she will have days where she leaks and days that she doesn't. She reports leaking approx 1-2 times per week. She has regular bowel movements. Fluid intake was reviewed and Karla was educated on bladder irritants. She does describes urgency at times and reports nocturia 1-3 times per night. With exam Karla is able to contract all mcnulty of the levator ani testing 3/5 MMT. She is able to hold 8-10 seconds but does fatigue some with multiple contractions. Pelvic floor endurance training may be helpful for Karla. She was given a bladder diary to track her leaks and fluid intakes and we talked about drinking a glass of water first thing in the am prior to her coffee. She was also educated on techniques to double void and fully empty her bladder. She tolerated this well today and is a good candidate for PT.
--- NOTE | 2025-01-07 16:50 | PT.OPPOC ---
Physical, Occupational & Speech Therapy At [facility] Current Diagnoses Stress incontinence (female) (male) (01/07/25) Pelvic muscle wasting (01/07/25) Urgency of urination (01/07/25) Visit Care Team Role Provider Type ALESSIA Ortiz Attending Provider Advanced Overlock Operator Family Provider Primary Care Provider Referring Provider Specialty: Medical Address: [address] [place] [address], [facility] Email: [email or web address] Plan Of Care PT-OP-B Current Condition Start: 01/07/25 11:19 Freq: Status: Active Protocol: Document 01/07/25 14:30 [facility] (Rec: 01/07/25 14:56 [facility] [id number]) Current Condition History of Current Condition Onset Date symptoms began in the past year Current Complaints urinary stress incontinence History of Current Condition leakage can occur with cough and sneeze and sometimes it just happens and can and intermittent once in a while she will experience urinary urgency. pt notes she drinks mostly water and at the most 2 cups per day, wine occasionally, sometimes ice tea. she is regular with her bowel movements no symptoms of pain or pressure. she does have a history of right sided hip a little over a year. Her hip wakes her up and is painful to sleep on hx of breast cancer [id number] and she took a estrogen baljinder for a year and a half. PT-OP-T Assessment and Plan Start: 01/07/25 11:19 Freq: Status: Active Protocol: Document 01/07/25 14:30 [facility] (Rec: 01/07/25 16:41 [facility] [id number]) Physical Therapy Assessment Rehab Potential Rehabilitation Potential Excellent Evaluation Complexity Number of Personal Factors/Comorbidities 1-2 Number of Body Systems Impaired 1-2 Clinical Presentation at Evaluation Stable Impairments Impairments Activity Tolerance,Soft Tissue Mobility,Strength Other Impairments urinary stress incontinence Goals 3 Impairment urinary urgency and nocturia 1 -3 times per night 5Th Grade Teacher Goal (LTG) Karla reports a overall reduction of urinary urgency and nocturia is reduced to 1 time per night LTG Duration 8 weeks 2 Impairment pt lacks a home program for pelvic floor endurance training Detention Goal (LTG) Karla is independent with a HEP for pelvic floor endurance training LTG Duration 8 weeks 1 Impairment urinary stress incontinence that is occurring 1-2 times per week Detention Goal (LTG) Karla reports a overall reduction of urinary stress incontinence symptoms LTG Duration 8 weeks Assessment Summary Assessment Karla is a 79 year old female who presents PT today with chief complaints of urinary stress incontinence symptoms that began approximately 1 year ago. She reports her symptoms are very intermittent and she is not sure why she will have days where she leaks and days that she doesn't. She reports leaking approx 1-2 times per week. She has regular bowel movements. Fluid intake was reviewed and Karla was educated on bladder irritants. She does describes urgency at times and reports nocturia 1-3 times per night. With exam Karla is able to contract all mcnulty of the levator ani testing 3/5 MMT. She is able to hold 8-10 seconds but does fatigue some with multiple contractions. Pelvic floor endurance training may be helpful for Karla. She was given a bladder diary to track her leaks and fluid intakes and we talked about drinking a glass of water first thing in the am prior to her coffee. She was also educated on techniques to double void and fully empty her bladder. She tolerated this well today and is a good candidate for PT. Electronically Signed by: Patti Watson, PT 01/07/25 [id number] If you are in agreement with this Plan of Care, please return a signed and dated copy. I have reviewed this Plan of Care and certify that the skilled therapy services above are required to meet the patient?s needs. Physician Signature Date Printed Name and Credentials Clinical Instructor Signature Printed Name and Credentials
--- NOTE | 2025-01-15 12:55 | PT.OTN ---
Current Diagnoses Stress incontinence (female) (male) (01/15/25) Pelvic muscle wasting (01/15/25) Urgency of urination (01/15/25) Physical Therapy Treatment Note PT-OP-A Visit Information Start: 01/07/25 11:19 Freq: Status: Active Protocol: Document 01/15/25 10:46 [facility] (Rec: 01/15/25 11:29 [facility] [id number]) Out-Patient Physical Therapy Visit Information Visit Information Visit Type Treatment Note Visit Start Time 10:45 Visit Stop Time 11:30 Visit Number 2 PT-OP-B Current Condition Start: 01/07/25 11:19 Freq: Status: Active Protocol: Document 01/07/25 14:30 [facility] (Rec: 01/07/25 14:56 [facility] [id number]) Current Condition History of Current Condition Onset Date symptoms began in the past year Current Complaints urinary stress incontinence History of Current leakage can occur with cough and sneeze and sometimes Condition it just happens and can and intermittent once in a while she will experience urinary urgency. pt notes she drinks mostly water and at the most 2 cups per day, wine occasionally, sometimes ice tea. she is regular with her bowel movements no symptoms of pain or pressure. she does have a history of right sided hip a little over a year. HEr hip wakes her up and is painful to sleep on hx of breast cancer [phone] and she took a estrogen baljinder for a year and a half. PT-OP-C Subjective Start: 01/07/25 11:19 Freq: Status: Active Protocol: Document 01/15/25 10:46 [facility] (Rec: 01/15/25 11:29 [facility] [id number]) OP-PT Subjective Patient Comments Patient Comments pt notes she hasn't had any problems since she saw me last week. SHe was able to hold the full 10 seconds PT-OP-I Pelvic Floor Start: 01/07/25 11:19 Freq: Status: Active Protocol: Document 01/07/25 16:28 [facility] (Rec: 01/07/25 16:41 [facility] [id number]) Pelvic Floor Assessment Urine Pelvic Floor Surgery Yes Urinary Symptoms Urge Sensation Other Urinary intermittent symptoms of stress incontinence Symptoms Leakage Size Medium Leakage Cause Urge Other Leakage Causes light activity, walking or light housework leakage is 1-2 times per week Pelvic Clock Pelvic Clock 6-9 Tightness Contraction Ability Voluntary Moderate Contraction Voluntary Relaxation Moderate Manual Muscle 3 Testing Left Manual Muscle 3 Testing Right Manual Muscle 3 Testing Anterior Manual Muscle 3 Testing Posterior Muscle Endurance ( 8 Seconds) Comments Pelvic Floor tightness noted on the right lateral wall of the pelvic Comments floor following a pelvic floor contraction, cues were given to fully relax the pelvic floor PT-OP-Q Treatments Start: 01/07/25 11:19 Freq: Status: Active Protocol: Document 01/15/25 10:46 [facility] (Rec: 01/15/25 11:29 [facility] [id number]) Therapeutic Exercises Supine Exercises hooklying clam shell Reps/Minutes 2 x 10 reps with 3 TB resting tone pelvic floor Supine Exercise Name 3.0 uv average pelvic floor long holds Supine Exercise Name resting tone dropped to baseline during long holds Reps/Minutes 10 second hold x 10 second rest x 10 reps 2 times per day Comments average 25.3 and max of 50 uv Self-Care/Home Management Treatment Education Patient Education Home Exercise Program Other Education urge deference technique and bladder retraining PT-OP-T Assessment and Plan Start: 01/07/25 11:19 Freq: Status: Active Protocol: Document 01/15/25 12:45 [facility] (Rec: 01/15/25 12:51 [facility] [id number]) Physical Therapy Assessment Goals 3 Impairment urinary urgency and nocturia 1-3 times per night Snf Goal (LTG) Karla reports a overall reducation of urinary urgency and nocturia is reduced to 1 time per night LTG Duration 8 weeks 2 Impairment pt lacks a home program for pelvic floor endurance training Snf Goal (LTG) Karla is independent with a HEP for pelvic floor endurance training LTG Duration 8 weeks 1 Impairment urinary stress incontinence that is occurring 1-2 times per week Customer Greeter Goal (LTG) Karla reports a overall reduction of urinary stress incontinence symptoms LTG Duration 8 weeks Assessment Summary Assessment Karla is doing well with her endurance holds and this week notes she hasn't experienced any leakage. Drinking water first thing in the am prior to her coffee seems to have really helped her as well so I encouraged her to look into her bladder irritants and continue with trying to flush out her bladder. She was educated on the urge deference technique and will also try this for home Physical Therapy Plan Frequency and Duration Frequency of 1x/Week Treatment Duration of 8 treatment (weeks) Plan of Care Start 01/07/25 Date Plan of Care End 03/04/25 Date Therapeutic Interventions Therapeutic Home Exercise Program,Manual Therapy,Patient/Caregiver Interventions Education,Self-Care/Home Management,Therapeutic Exercises Next Visit Focus/Plan Next Note Type Treatment Note Next Visit Plan review urge deference technique and check in with how Karla did with hooklying hip abduction with resistance , long holds of the pelvic floor with EMG biofeedback
--- NOTE | 2025-02-04 11:11 | PT.OPDS ---
Current Diagnoses Stress incontinence (female) (male) (01/15/25) Pelvic muscle wasting (01/15/25) Urgency of urination (01/15/25) Visit Care Team Role Provider Type ALESSIA Ortiz Attending Provider Advanced Reimbursement Spec Family Provider Primary Care Provider Referring Provider Specialty: Medical Address: [address] [place] [address], [facility] Email: [email or web address] Visit Number Visit Number 2 Discharge Summary PT-OP-B Current Condition Start: 01/07/25 11:19 Freq: Status: Active Protocol: Document 01/07/25 14:30 [facility] (Rec: 01/07/25 14:56 [facility] [id number]) Current Condition History of Current Condition Onset Date symptoms began in the past year Current Complaints urinary stress incontinence History of Current leakage can occur with cough and sneeze and sometimes Condition it just happens and can and intermittent once in a while she will experience urinary urgency. pt notes she drinks mostly water and at the most 2 cups per day, wine occasionally, sometimes ice tea. she is regular with her bowel movements no symptoms of pain or pressure. she does have a history of right sided hip a little over a year. HEr hip wakes her up and is painful to sleep on hx of breast cancer [id number] and she took a estrogen baljinder for a year and a half. PT-OP-C Subjective Start: 01/07/25 11:19 Freq: Status: Active Protocol: Document 01/15/25 10:46 [facility] (Rec: 01/15/25 11:29 [facility] [id number]) OP-PT Subjective Patient Comments Patient Comments pt notes she hasn't had any problems since she saw me last week. SHe was able to hold the full 10 seconds PT-OP-I Pelvic Floor Start: 01/07/25 11:19 Freq: Status: Active Protocol: Document 01/07/25 16:28 [facility] (Rec: 01/07/25 16:41 [facility] [id number]) Pelvic Floor Assessment Urine Pelvic Floor Surgery Yes Urinary Symptoms Urge Sensation Other Urinary intermittent symptoms of stress incontinence Symptoms Leakage Size Medium Leakage Cause Urge Other Leakage Causes light activity, walking or light housework leakage is 1-2 times per week Pelvic Clock Pelvic Clock 6-9 Tightness Contraction Ability Voluntary Moderate Contraction Voluntary Relaxation Moderate Manual Muscle 3 Testing Left Manual Muscle 3 Testing Right Manual Muscle 3 Testing Anterior Manual Muscle 3 Testing Posterior Muscle Endurance ( 8 Seconds) Comments Pelvic Floor tightness noted on the right lateral wall of the pelvic Comments floor following a pelvic floor contraction, cues were given to fully relax the pelvic floor PT-OP-T Assessment and Plan Start: 01/07/25 11:19 Freq: Status: Active Protocol: Document 02/04/25 11:06 [facility] (Rec: 02/04/25 11:11 [facility] [id number]) Physical Therapy Assessment Goals 3 Impairment urinary urgency and nocturia 1-3 times per night Correction Goal (LTG) Karla reports a overall reduction of urinary urgency and nocturia is reduced to 1 time per night goal met LTG Duration 8 weeks 2 Impairment pt lacks a home program for pelvic floor endurance training Correction Goal (LTG) Karla is independent with a HEP for pelvic floor endurance training goal met LTG Duration 8 weeks 1 Impairment urinary stress incontinence that is occurring 1-2 times per week Procurement Agent Goal (LTG) Karla reports a overall reduction of urinary stress incontinence symptoms goal met LTG Duration 8 weeks Assessment Summary Assessment Karla reports she is doing well with her home program and she hasn't been experiencing the leakage. She requests DC from PT at this time due to symptoms being resolved. She will DC PT at this time and continue with her home program Physical Therapy Plan Discharge Physical Therapy Discharge Reasons Goals Met
== END 2025-02-06 10:00 | disposition home or self-care (01) ==
LOC: PHYS 10:45
PROVIDERS: Family Provider Registered Nurse Diabetes Educator; PCP Registered Nurse Diabetes Educator; Referring Provider Registered Nurse Diabetes Educator; Visit Provider Registered Nurse Diabetes Educator
DX: N39.3 Stress incontinence (female) (male) (principal); R39.15 Urgency of urination; N81.84 Pelvic muscle wasting
CPT/HCPCS: 97110; 97161; 97535

== ENCOUNTER → 2025-01-29 09:42 | Outpatient (CLI) | payer MEDICARE, OTHER, SELFPAY ==
--- NOTE | 2025-01-29 09:43 | DI.RAD.S_ITS ---
PROCEDURE: XR DEXA AXIAL SKELETON INDICATIONS: reeval COMPARISON: [facility], , XR DEXA AXIAL SKELETON, 01/26/2023, 10:08. FINDINGS: Lumbar Spine: Bone mineral density 0.820 g/cm2, T score -2.1, compared to -2 4. Left Femoral Neck: Bone mineral density 0.611 g/cm2, T score -2.1, compared to -2.0. Fracture Risk Calculation (when applicable): 10-year fracture risk of a major osteoporotic fracture 16 percent and of a hip fracture 4.7 percent. (T score greater or equal to -1.0 to: NORMAL) (T score from -1.1 to -2.4: OSTEOPENIA) (T score less than or equal to -2.5: OSTEOPOROSIS) IMPRESSION: Moderate to severe osteopenia within the lumbar spine demonstrate an approximate improvement of 5% bone mineral density. Relatively stable appearance osteopenia within the femoral. Follow-up guidelines as follows: Osteoporosis: Consider a repeat DEXA and Vertebral Fracture Assessment (VFA) exam in 2 years or sooner if medically necessary, to reassess this patient's status. Osteopenia: Consider a repeat DEXA in 2-3 years to reassess this patient's status, or if there is a new clinical indication. Normal: Consider a repeat DEXA in 5 years or sooner, or if there is a new clinical indication. All treatment decisions require clinical judgment and consideration of individual patient factors, including patient preferences, comorbidities, previous drug use, risk factors not captured in the FRAX model (e.g., frailty, falls, vitamin D deficiency, increased bone turnover, interval significant decline in bone density ) and possible under- or over-estimation of fracture risk by FRAX. In addition, the NOF Guide recommends that FDA-approved medical therapies be considered in postmenopausal women and men age >= 50 years with a: * Hip or vertebral (clinical or morphometric) fracture * T-score of <=-2.5 at the spine or hip * Ten-year fracture probability by FRAX of >= 3% for hip fracture or >=20% for major osteoporotic fracture. Dictated by: Lidia Leigh M.D. on 01/29/2025 at 15:18 Approved by: Lidia Leigh M.D. on 01/29/2025 at 15:19
== END ==
PROVIDERS: Family Provider Registered Nurse Diabetes Educator; PCP Registered Nurse Diabetes Educator; Referring Provider Registered Nurse Diabetes Educator; Visit Provider Registered Nurse Diabetes Educator
DX: M85.89 Other specified disorders of bone density and structure, multiple sites (principal)
CPT/HCPCS: 77080

== ENCOUNTER → 2025-06-04 11:37 | Outpatient (CLI) | payer MEDICARE, OTHER, SELFPAY ==
--- NOTE | 2025-06-04 11:39 | DI.RAD.S_ITS ---
PROCEDURE: XR SHOULDER RT MIN 2V INDICATIONS: eval persistent R shoulder pain TECHNIQUE: 3 views of the shoulder were acquired. COMPARISON: [facility], CR, XR SHOULDER RT MIN 2V, 12/04/2023, 11:05. FINDINGS: Moderate degenerative changes with joint space narrowing and osteophytes right glenohumeral and acromioclavicular joints, Kellgren Timoteo grade 3 progressed. Mild osteopenia. No radiographic evidence of displaced fracture, dislocation, abnormal calcifications or high attenuation soft tissue foreign body. Some artifacts from overlying clothing or other extrinsic artifacts partially limit radiographic detail. IMPRESSION: Moderate degenerative changes progressed. If symptoms persist or worsen, or there is high clinical suspicion of right shoulder abnormality, MRI could be performed. Dictated by: Josh Zhou M.D. on 06/04/2025 at 11:55 Approved by: Josh Zhou M.D. on 06/04/2025 at 11:57
== END ==
PROVIDERS: Family Provider Registered Nurse Diabetes Educator; PCP Registered Nurse Diabetes Educator; Referring Provider Registered Nurse Diabetes Educator; Visit Provider Registered Nurse Diabetes Educator
DX: M85.811 Other specified disorders of bone density and structure, right shoulder (principal); M25.511 Pain in right shoulder; G89.29 Other chronic pain
CPT/HCPCS: 73030

== ENCOUNTER → 2025-06-09 07:36 | Outpatient (CLI) | payer MEDICARE, OTHER, SELFPAY ==
--- NOTE | 2025-06-09 07:38 | DI.MRI.S_ITS ---
PROCEDURE: MR SHOULDER RT WO CON INDICATIONS: eval persistent R shoulder pain TECHNIQUE: Noncontrast oblique coronal T2 fast spin echo with fat saturation, oblique sagittal T1 spin echo and T2 fast spin echo with fat saturation, axial T1 spin echo and T2 fast spin echo with fat saturation through the shoulder. COMPARISON: None. FINDINGS: Image quality: Excellent. Some images are limited by patient motion, pulsation or other artifacts. Bones and bursae: Severe degenerative changes of the glenohumeral joint with severe joint space narrowing, osteophytes, [id number] configuration, subchondral edema some flattening/remodeling of the humeral head and glenoid. Moderate degenerative changes of the acromioclavicular joint with joint space narrowing osteophytes, capsular hypertrophy. Type 2 laterally downsloping acromion. Extensive heterogeneous low T1 high T2 signal in the humeral head and humeral neck most likely related to degenerative changes, osteopenia, although an element of bone contusion or trabecular injury of the humeral neck or other infiltrative process not excluded. Rotator cuff: Heterogeneous signal with areas of thinning of the mid and distal supraspinatus, subscapularis and to a lesser degree distal infraspinatus, tendinopathy with partial tears. No full-thickness tear or myotendinous retraction. Mild muscular fatty atrophy most notably of subscapularis and supraspinatus. Capsule and soft tissues: Moderate diffuse increased subacromial/subdeltoid bursal fluid predominantly anterior to the glenohumeral joint and subscapularis. Mild increased fluid in the biceps tendon sheath may be related to tenosynovitis. Increased T2 weighted signal and thickening of the biceps tendon and biceps anchor tendinopathy without focal tear or retraction. Severe degenerative changes of the glenoid labrum. Mild increased The long head of the biceps tendon demonstrates normal location and morphology. The rotator interval appears normal, without fibrosis. The coracohumeral ligament is normal in thickness. IMPRESSION: Severe degenerative changes as discussed above. Tendinopathy and partial tears of the rotator cuff and biceps as discussed above. Heterogeneous bone marrow signal in the humeral head and neck as discussed above. Other findings as above. Follow-up suggested Dictated by: Josh Zhou M.D. on 06/10/2025 at 11:09 Approved by: Josh Zhou M.D. on 06/10/2025 at 11:24
== END ==
PROVIDERS: Family Provider Registered Nurse Diabetes Educator; PCP Registered Nurse Diabetes Educator; Referring Provider Registered Nurse Diabetes Educator; Visit Provider Registered Nurse Diabetes Educator
DX: M75.111 Incomplete rotator cuff tear or rupture of right shoulder, not specified as traumatic (principal); M25.511 Pain in right shoulder; G89.29 Other chronic pain
CPT/HCPCS: 73221